=== PATIENT | female | born 1955 | race Caucasian/White ===

== ENCOUNTER 2018-02-27 08:05 | Inpatient (IN) | payer BC ==
[~2018-02-27 08:05] MED LIST: Buffered Lidocaine 0.9% SYRIN* 5 ML/SYR SYRINGE INTRADERM ONE; Vancomycin(*) 1,000 MG in NS 0.9% 250 ML* 250 ML IVPB SCH
--- OUTSIDE RECORDS SUMMARY | 2018-02-27 08:17 | XMS REPORT ---
:1955 External Reference #:[id number] Author Organization [facility] Address [address] [facility] [place] [address] Phone [phone] Care Team Providers Name Role Phone Davide Christianson III, MD Primary Care Physician Unavailable Payers Type Date Identification Numbers Payment Provider Subscriber Commercial Policy Number: [id number] [facility] Brigida Sunshinell PayID: [id number] [address] [address] [place] [address] Medigap Part B Effective: Policy Number: [facility] Brigida Fierro 2013 [id number] Sher Expires: 2015 PayID: [id number] [address] [address] [place] [address] Medigap Part B Effective: Policy Number: [facility] Brigida Fierro 2011 [id number] Sher Expires: 2013 PayID: [id number] [address] [place] [address] Medigap Part B Expires: 2011 Policy Number: [facility] Brigida Olivarez [id number] PayID: [id number] [address] [address] [place] [address] Problems Date Description Provider Status Onset: 02/24/2011 Benign essential hypertension Davide Christianson M.D. Active Onset: 02/24/2011 Allergic rhinitis Davide Christianson M.D. Active Onset: 02/24/2011 Low back pain Davide Christianson M.D. Active Onset: 02/24/2011 Osteochondropathy Davide hCristianson M.D. Active Onset: 01/05/2016 Essential hypertension Davide Christianson M.D. Active Onset: 01/05/2016 Disorder of bone Davide Christianson M.D. Active Onset: 04/20/2017 Scoliosis deformity of spine Jaciel Fairchild M.D. Active Onset: 04/20/2017 Degeneration of lumbar Jaciel Fairchild M.D. 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 Active Onset: 01/10/2018 Neck pain Chris Charles M.D. Active Onset: 01/10/2018 Congenital anomaly of brain Chris Charles M.D. Active Family History Date Family Member(s) Problem(s) Comments General Hypertension General Osteoporosis Father due to Sudden () - age 85. (+) HTN Mother Hypertension Mother Osteoporosis Social History Type Date Description Comments Occupation Retired Lead Manufacturing Technician /factory Cigarette Use Quit - Age 30 1-2 ppd max; began age 15 ETOH Use Rarely consumes alcohol "a little" Smoking Patient is a former smoker Recreational Drug Use Denies Drug Use Exercise Type/Frequency Exercises regularly walks daily Allergies, Adverse Reactions, Alerts Date Description Reaction Status Severity Comments 01/30/2007 PCN active Rash 05/10/2007 Tylenol active Causes Nausea 02/08/2018 Seasonal active Medications Medication Date Status Form Strength Qnty SIG Indications Ordering Provider Potassium 01/06/ Active Tablets ER 8Meq 90tab take 1 by Davide Sams Chloride ER 2016 s mouth daily Sunni Christianson Montelukast 01/06/ Active Tablets 10mg 90tab take 1 by Davide Sams Sodium 2015 s mouth at Meghan, bedtime as M.D. needed for allergies Triamterene/Hy 01/06/ Active Capsules 37.5-25mg 90cap take 1 by Davide Sams drochlorothiaz 2015 s mouth daily Meghan servando Riaz.Autumn Nasonex 01/04/ Active Suspension 50mcg/Act 51gm instill 2 Davide Sams 2015 sprays into Meghan, each M.D. nostril once a day Ashely 02/18/ Active Tablets 180mg 90tab 1 po qd prn Davide Sams 2008 s Sunni Christianson Calcium/Vitami / Active Tablets 600mg/400 1 PO bid Unknown n D 0000 mg Metamucil / Active Powder 28.3% 3 tsp at Unknown 0000 bedtime Vitamin D-3 / Active Tablets 400Unit two tablets Unknown 0000 daily Ibu-200 / Active Tablets 200mg 2 tab by Unknown 0000 mouth as needed Azelastine HCL 09/24/ Hx Solution 0.05% 6ml 2 drops to Davide Sams (Ophthalmic) 2016 - each eye Meghan, 01/09/ twice a day M.D. 2018 as needed Budesonide 12/31/ Hx Suspension 32mcg/Act 3unit 1 spray to Davide Sams 2014 - s each Meghan, 01/04/ nostril M.D. 2016 daily Zostavax 04/09/ Hx Solution Rec [id number] 1unit 1 dose s/c Davide Sams 2013 - 0.65ML s Meghan, 01/04/ M.D. 2015 Klor-Con 11/27/ Hx Tablets ER 8Meq 90tab take 1 by Davide Sams 2013 - s mouth daily Meghan, M.D. 2016 Azelastine HCL 09/28/ Hx Solution 0.05% 1bott 1 drop each Davide Sams 2013 - le eye bid Meghan, 09/28/ M.D. 2013 Azelastine HCL 09/28/ Hx Solution 0.05% 6ml 2 drops Davide Sams Opthalmic 2013 - twice a day Meghan, Solution 09/24/ as needed M.D. 2016 Vitamin D 05/11/ Hx Capsules 400Unit 60cap 1 po bid Davide Sams 2010 - s Meghan, 12/31/ M.D. 2013 Klor-Con 8 02/25/ Hx Tablets ER 8Meq 90tab Take One Davide Sams 2010 - Tablet By Meghan 11/27/ Mouth Every M.D. 2013 Day Dyazide 02/08/ Hx Capsules 37.5-25mg 90cap take 1 by Davide Sams 2010 - mouth daily Meghan, M.D. 2016 Dyazide 12/09/ Hx 70-50mg 45uni 1/2 tablet Davide Sams 2010 - ts po qd Meghan, 02/08/ M.D. 2010 Slow K 12/22/ Hx 8Meq 90uni 1 po qd Davide Sams 2009 - ts Meghan, 12/27/ M.D. 2011 Darvon-N 02/03/ Hx Tablets 100mg 1-2 tabs po Davide Sams 2008 - qid prn Meghan, 02/12/ M.D. 2009 Flonase 12/27/ Hx Suspension 50mcg/Act QS 2 Davide Sams 2007 - intranasal Meghan, 12/31/ puffs to M.D. 2014 each nostril daily 3 month supply please Celebrex 11/09/ Hx Capsules 200mg 90cap 1 po qd Davide Sams 2008 - s Meghan, 02/03/ M.D. 2009 Physical 08/28/ Hx 10Vis eval/Rx Davide Sams Therapy 2008 - its chronic low Meghan, 02/03/ back pain M.D. 2008 Darvon-N 07/07/ Hx Tablets 100mg 30tab 1 po Davide Sams 2007 - s Meghan, 02/03/ M.D. 2009 Veramyst 03/14/ Hx Suspension 27.5mcg/S 1unit 1 spray to Davide Sams 2006 - pray s jose Meghan, 12/27/ nostril M.D. 2007 daily Ashely 03/14/ Hx Tablets 180mg 30tab 1 po qd prbouchra Sams 2006 - paddy Christianson, 02/03/ M.D. 2008 Potassium 01/30/ Hx Tablets ER 90tab 1 PO qd Davide Sams Gluconate 2006 - paddy Christianson, 01/30/ M.D. 2006 Multivitamin 01/30/ Hx Tablets 1 PO qd Davide Sams With Iron 2006 - Meghan, M.D. 2010 Claritin / Hx Tablets 10mg 1 PO qd inez Peña, 0000 - MD Fuentes 2006 Dyazide / Hx Capsules 37.5-25 90cap 1 po qd Davide Sams 0000 - paddy Christianson, M.D. 2010 Slow K / Hx 60Meg 90uni 1 PO qd Davide Sams 0000 - ts (600 mgm) Meghan, 12/22/ M.D. 2009 Astelin / Hx Solution 137mcg/Sp 3unit 2 Sprays Davide Sams 0000 - ray s Each Nostil Meghan, 02/03/ bid M.D. 2008 With Vit D 00/ Hx Tablets 600mg qd Mariana 0000 - MD Fuentes 2006 Zyrtec Allergy / Hx Capsules 10mg 30cap 1 po qd Unknown 0000 - s 2017 Econazole / Hx Cream 1% 30g topical qd Unknown Nitrate 0000 - 2 weeks 2013 Singulair / Hx Tablets 10mg 90tab take 1 by Davide Sams 0000 - s mouth at Meghan, 12/07/ bedtime as M.D. 2016 needed for allergies Naproxen / Hx Tablets 500mg Conchis 0000 - Owen, 2017 Mometasone / Hx Suspension 50mcg/Act two sprays Unknown Furoate 0000 - everyday 2017 Medications Administered in Office Medication Date Status Form Strength Qnty SIG Indications Ordering Provider Influenza Administered Injection Unknown Virus Vaccine 014 Immunizations CPT Code Status Date Vaccine Lot # [id number] Given 03/26/2017 Influenza Virus Vaccine, Quadrivalent, Split, Preservative Free 64287 Given 12/08/2016 Tdap - Tetanus/Diptheria/Acellular Pertussis [id number] 26538 Given 03/25/2016 Influenza Virus Vaccine, Quadrivalent, Split, Preservative Free 85950 Given 04/17/2015 Zoster (Zostavax) 03231 Given 03/27/2015 Influenza Virus Vaccine, Quadrivalent, Split, Preservative Free 13986 Given 04/23/2014 Pneumonia Vaccine 78099 Given 04/07/2012 Fluzone High Dose 05952 Given 05/08/2008 Influenza Virus 3Yrs & Over 32771 Given 05/08/2008 Influenza Virus 3Yrs & Over 897-48 91158 Given 07/28/2006 Td (History By Patient) 33830 Given Unknown Influenza Virus Vaccine, Quadrivalent, Split, Preservative Free Vital Signs Date Vital Result Comment 02/24/2018 Height 66 inches 5'6" Weight 111.00 lb BP Systolic Sitting 102 mmHg BP Diastolic Sitting 70 mmHg Pain Level 6 BMI (Body Mass Index) 17.9 kg/m2 02/14/2018 Height 66 inches 5'6" Weight 111.00 lb Heart Rate 60 /min BP Systolic Sitting 100 mmHg BP Diastolic Sitting 60 mmHg O2 % BldC Oximetry 97 % BMI (Body Mass Index) 17.9 kg/m2 02/08/2018 Height 66 inches 5'6" Weight 111.00 lb Heart Rate 67 /min BP Systolic 108 mmHg BP Diastolic 64 mmHg Respiratory Rate 16 /min Pain Level 2 O2 % BldC Oximetry 98 % BMI (Body Mass Index) 17.9 kg/m2 01/20/2018 Height 66 inches 5'6" Weight 110.00 lb BP Systolic Sitting 110 mmHg BP Diastolic Sitting 70 mmHg Pain Level 3 BMI (Body Mass Index) 17.8 kg/m2 01/10/2018 Height 66 inches 5'6" Weight 110.00 lb Heart Rate 60 /min BP Systolic Sitting 96 mmHg BP Diastolic Sitting 64 mmHg Respiratory Rate 16 /min BMI (Body Mass Index) 17.8 kg/m2 12/05/2017 Height 66 inches 5'6" Weight 110.00 lb Heart Rate 62 /min BP Systolic Sitting 98 mmHg BP Diastolic Sitting 68 mmHg O2 % BldC Oximetry 99 % BMI (Body Mass Index) 17.8 kg/m2 11/21/2017 Height 66 inches 5'6" Weight 110.00 lb BP Systolic Sitting 120 mmHg BP Diastolic Sitting 80 mmHg Pain Level 5 BMI (Body Mass Index) 17.8 kg/m2 11/14/2017 Height 66 inches 5'6" Weight 110.00 lb BP Systolic Sitting 132 mmHg BP Diastolic Sitting 80 mmHg Pain Level 4 BMI (Body Mass Index) 17.8 kg/m2 11/11/2017 Height 66 inches 5'6" Weight 110.00 lb BP Systolic Sitting 122 mmHg BP Diastolic Sitting 80 mmHg Pain Level 6 BMI (Body Mass Index) 17.8 kg/m2 04/20/2017 Height 66 inches 5'6" Weight 110.00 lb Heart Rate 64 /min BP Systolic Sitting 110 mmHg BP Diastolic Sitting 78 mmHg Pain Level 2 BMI (Body Mass Index) 17.8 kg/m2 04/11/2017 Height 66 inches 5'6" Weight 110.38 lb Heart Rate 60 /min BP Systolic Sitting 118 mmHg BP Diastolic Sitting 72 mmHg Body Temperature 98.5 F O2 % BldC Oximetry 99 % BMI (Body Mass Index) 17.8 kg/m2 12/08/2016 Height 66 inches 5'6" Weight 109.25 lb Heart Rate 59 /min BP Systolic 120 mmHg BP Diastolic 70 mmHg Body Temperature 96.5 F O2 % BldC Oximetry 98 % BMI (Body Mass Index) 17.6 kg/m2 01/05/2016 Height 66 inches 5'6" Weight 110.00 lb Heart Rate 57 /min BP Systolic Sitting 98 mmHg BP Diastolic Sitting 68 mmHg Body Temperature 97.7 F O2 % BldC Oximetry 97 % BMI (Body Mass Index) 17.8 kg/m2 12/31/2014 Height 66 inches 5'6" Weight 110.00 lb Heart Rate 56 /min BP Systolic Sitting 110 mmHg BP Diastolic Sitting 60 mmHg O2 % BldC Oximetry 98 % BMI (Body Mass Index) 17.8 kg/m2 12/31/2013 Height 66 inches 5'6" Weight 109.75 lb Heart Rate 60 /min BP Systolic Sitting 98 mmHg BP Diastolic Sitting 54 mmHg Body Temperature 98.3 F BMI (Body Mass Index) 17.7 kg/m2 12/28/2012 Height 66 inches 5'6" Weight 111.00 lb Heart Rate 60 /min BP Systolic Sitting 100 mmHg BP Diastolic Sitting 56 mmHg BMI (Body Mass Index) 17.9 kg/m2 12/28/2011 Height 60.75 inches 5'0.75" Weight 117.00 lb Heart Rate 56 /min BP Systolic Sitting 120 mmHg BP Diastolic Sitting 80 mmHg Body Temperature 97.0 F BMI (Body Mass Index) 22.3 kg/m2 02/24/2011 Height 60.75 inches 5'0.75" Weight 121.00 lb Heart Rate 64 /min BP Systolic Sitting 112 mmHg BP Diastolic Sitting 60 mmHg BMI (Body Mass Index) 23.0 kg/m2 02/12/2010 Weight 123.00 lb Heart Rate 54 /min BP Systolic Sitting 140 mmHg BP Diastolic Sitting 82 mmHg 02/03/2009 Weight 127.00 lb Heart Rate 56 /min BP Systolic Sitting 110 mmHg BP Diastolic Sitting 76 mmHg 05/16/2008 Height 65.5 inches 5'5.50" Weight 130.00 lb BP Systolic Sitting 128 mmHg BP Diastolic Sitting 80 mmHg BMI (Body Mass Index) 21.3 kg/m2 01/31/2008 Height 65.5 inches 5'5.50" Weight 127.00 lb Heart Rate 56 /min BP Systolic Sitting 130 mmHg BP Diastolic Sitting 80 mmHg BMI (Body Mass Index) 20.8 kg/m2 08/28/2007 Height 65.5 inches 5'5.50" BP Systolic Sitting 120 mmHg BP Diastolic Sitting 70 mmHg 07/19/2007 Height 65.5 inches 5'5.50" Weight 132.00 lb Heart Rate 56 /min BP Systolic Sitting 146 mmHg BP Diastolic Sitting 80 mmHg BMI (Body Mass Index) 21.6 kg/m2 07/07/2007 Height 65.5 inches 5'5.50" BP Systolic Sitting 140 mmHg BP Diastolic Sitting 88 mmHg 05/10/2007 Height 65.5 inches 5'5.50" Weight 134.00 lb Heart Rate 60 /min BP Systolic Sitting 132 mmHg BP Diastolic Sitting 80 mmHg BMI (Body Mass Index) 22.0 kg/m2 03/14/2007 Height 65.5 inches 5'5.50" Weight 129.00 lb Heart Rate 56 /min BP Systolic Sitting 130 mmHg BP Diastolic Sitting 80 mmHg BMI (Body Mass Index) 21.1 kg/m2 01/30/2007 Height 65.5 inches 5'5.50" Weight 129.00 lb Heart Rate 60 /min BP Systolic Sitting 124 mmHg BP Diastolic Sitting 70 mmHg BMI (Body Mass Index) 21.1 kg/m2 Results Test Date Test Result H/L Range Note CBC Auto Diff 02/23/2018 White Blood Count 6.3 10^3/uL 3.5-10.8 Red Blood Count 4.44 10^6/uL 4.00-5.40 Hemoglobin 14.2 g/dL 12.0-16.0 Hematocrit 41 % 35-47 Mean Corpuscular Volume 93 fL 80-97 Mean Corpuscular Hemoglobin 32 pg High 27-31 Mean Corpuscular HGB Conc 35 g/dL 31-36 Red Cell Distribution Width 13 % 10.5-15 Platelet Count 356 10^3/uL 150-450 Mean Platelet Volume 7.7 um3 7.4-10.4 Abs Neutrophils 3.8 10^3/uL 1.5-7.7 Abs Lymphocytes 1.6 10^3/uL 1.0-4.8 Abs Monocytes 0.6 10^3/uL 0-0.8 Abs Eosinophils 0.3 10^3/uL 0-0.6 Abs Basophils 0.1 10^3/uL 0-0.2 Abs Nucleated RBC 0 10^3/uL Granulocyte % 60.2 % 38-83 Lymphocyte % 25.0 % 25-47 Monocyte % 9.7 % High 0-7 Eosinophil % 4.0 % 0-6 Basophil % 1.1 % 0-2 Nucleated Red Blood Cells % 0 Inr/Protime 02/23/2018 Inr 0.94 0.77-1.02 Laboratory test finding 02/23/2018 Partial Thrombo Time 33.1 seconds 26.0 -36.3 PTT Basic Metabolic Panel 02/23/2018 Sodium 137 mmol/L 135-145 Potassium 3.6 mmol/L 3.5-5.0 Chloride 98 mmol/L Low 101-111 Co2 Carbon Dioxide 31 mmol/L 22-32 Anion Gap 8 mmol/L 2-11 Glucose 90 mg/dL 70-100 Blood Urea Nitrogen 18 mg/dL 6-24 Creatinine 0.66 mg/dL 0.51-0.95 BUN/Creatinine Ratio 27.3 High 8-20 Calcium 10.3 mg/dL 8.6-10.3 Egfr Non- 90.7 >60 Egfr 109.8 >60 1 Type & Screen 02/23/2018 Patient Blood Type A Positive Antibody Screen NEGATIVE Urinalysis Profile 02/23/2018 Urine Color Straw Urine Appearance Clear Urine Specific Lamar 1.009 Low 1.010-1.030 Urine pH 5.0 5-9 Urine Urobilinogen Negative Negative Urine Ketones Negative Negative Urine Protein Negative Negative Urine Leukocytes Trace Negative Urine Blood Negative Negative Urine Nitrite Negative Negative Urine Bilirubin Negative Negative Urine Glucose Negative Negative Urine White Blood Cell Trace(0-5/hpf) Absent Urine Red Blood Cell Absent Absent Urine Bacteria Absent Absent Urine Squamous Epithelial Cell Present Absent Creatinine 01/25/2018 Creatinine 0.84 mg/dL 0.51-0.95 Egfr Non- 68.7 >60 Egfr 83.1 >60 2 Vitamin B12 And Folate Serum 01/20/2018 Vitamin B12 340 pg/mL 180-914 3 Folic Acid (Folate) 11.87 ng/mL >3.99 Laboratory test finding 01/20/2018 TSH (Thyroid Stim Horm) 1.45 mcIU/mL 0.34-5.60 Free T4 (Free Thyroxine) 0.95 ng/dL 0.61-1.12 Nuclear AB (Dee) By Ifa Igg <1:80 (Negative) 4 Erythrocyte Sed Rate 10 mm/Hr 0-30 C Reactive Protein < 1.00 mg/L <8.01 Rapid HIV <pending> Methylmalonic Acid Mma 0.34 nmol/mL <=0.40 5 HIV 1/2 AB Evaluation 01/20/2018 HIV 1 2 Antibody Nonreactive Nonreactive 6 Laboratory test 12/20/2017 Vitamin D Total 53.3 ng/mL High 20-50 finding 25(Oh) Basic Metabolic Panel 11/25/2017 Sodium 138 mmol/L Low 139-145 Potassium 4.1 mmol/L 3.5-5.0 Chloride 99 mmol/L Low 101-111 Co2 Carbon Dioxide 32 mmol/L 22-32 Anion Gap 7 mmol/L 2-11 Glucose 77 mg/dL 70-100 Blood Urea Nitrogen 28 mg/dL High 6-24 Creatinine 0.71 mg/dL 0.51-0.95 BUN/Creatinine Ratio 39.4 High 8-20 Calcium 10.8 mg/dL High 8.6-10.3 Egfr Non- 83.4 >60 Egfr 107.3 >60 7 Xray 11/11/2017 Spine Scoliosis Erect <pending> Spine Lumbosacral Bending Views Only 2 Or 3 Views <pending> Laboratory test 04/01/2017 Surgical Pathology SEE RESULT BELOW 8, 9 finding Basic Metabolic Panel 12/08/2016 Sodium 139 mmol/L 133-145 Potassium 3.8 mmol/L 3.5-5.0 Chloride 98 mmol/L Low 101-111 Co2 Carbon Dioxide 31 mmol/L 22-32 Anion Gap 10 mmol/L 2-11 Glucose 81 mg/dL 70-100 Blood Urea Nitrogen 30 mg/dL High 6-24 Creatinine 0.71 mg/dL 0.51-0.95 BUN/Creatinine Ratio 42.3 High 8-20 Calcium 10.1 mg/dL 8.6-10.3 Egfr Non- 83.7 >60 Egfr 107.6 >60 10 Lipid Profile (Trig/Chol/HDL) 12/22/2015 Triglycerides 78 mg/dL 11 Cholesterol 191 mg/dL 12 HDL Cholesterol 57.2 mg/dL 13 LDL Cholesterol 118 mg/dL 14 Comp Metabolic Panel 12/22/2015 Sodium 135 mmol/L 133-145 Potassium 3.7 mmol/L 3.5-5.0 Chloride 99 mmol/L Low 101-111 Co2 Carbon Dioxide 31 mmol/L 22-32 Anion Gap 5 mmol/L 2-11 Glucose 84 mg/dL 70-100 Blood Urea Nitrogen 26 mg/dL High 6-24 Creatinine 0.75 mg/dL 0.51-0.95 BUN/Creatinine Ratio 34.7 High 8-20 Calcium 9.8 mg/dL 8.6-10.3 Total Protein 7.0 g/dL 6.4-8.9 Albumin 4.5 g/dL 3.2-5.2 Globulin 2.5 g/dL 2-4 Albumin/Globulin Ratio 1.8 1-3 Total Bilirubin 0.50 mg/dL 0.2-1.0 Alkaline Phosphatase 53 U/L 34-104 Alt 19 U/L 7-52 Ast 21 U/L 13-39 Egfr Non- 78.8 >60 Egfr 101.4 >60 15 Lipid Profile (Trig/Chol/HDL) 12/18/2014 Triglycerides 53 mg/dL 16 Cholesterol 177 mg/dL 17 HDL Cholesterol 60.3 mg/dL 18 LDL Cholesterol 106 mg/dL 19 Comp Metabolic Panel 12/18/2014 Sodium 136 mmol/L 133-145 Potassium 3.8 mmol/L 3.5-5.0 Chloride 99 mmol/L Low 101-111 Co2 Carbon Dioxide 31 mmol/L 22-32 Anion Gap 6 mmol/L 2-11 Glucose 82 mg/dL 70-100 Blood Urea Nitrogen 24 mg/dL 6-24 Creatinine 0.71 mg/dL 0.51-0.95 BUN/Creatinine Ratio 33.8 High 8-20 Calcium 9.6 mg/dL 8.6-10.3 Total Protein 7.0 g/dL 6.4-8.9 Albumin 4.6 g/dL 3.2-5.2 Globulin 2.4 g/dL 2-4 Albumin/Globulin Ratio 1.9 1-3 Total Bilirubin 0.50 mg/dL 0.2-1.0 Alkaline Phosphatase 52 U/L 34-104 Alt 18 U/L 7-52 Ast 20 U/L 13-39 Egfr Non- 84.3 >60 Egfr 108.4 >60 20 Comp Metabolic Panel 01/03/2014 Sodium 137 mmol/L 133-145 Potassium 4.0 mmol/L 3.7-5.6 Chloride 101 mmol/L 101-111 Co2 Carbon Dioxide 32 mmol/L 22-32 Anion Gap 4 mmol/L 2-11 Glucose 81 mg/dL 70-100 Blood Urea Nitrogen 19 mg/dL 6-24 Creatinine 0.71 mg/dL 0.51-0.95 BUN/Creatinine Ratio 26.8 High 8-20 Calcium 9.8 mg/dL 8.6-10.3 Total Protein 6.9 g/dL 6.4-8.9 Albumin 4.4 g/dL 3.2-5.2 Globulin 2.5 g/dL 2-4 Albumin/Globulin Ratio 1.8 1-3 Total Bilirubin 0.60 mg/dL 0.2-1.0 Alkaline Phosphatase 58 U/L 34-104 Alt 19 U/L 7-52 Ast 23 U/L 13-39 Egfr Non- 84.6 >60 Egfr 108.7 >60 21 Hemoglobin/Hematacrit 02/16/2013 Hemoglobin 11.6 g/dL Low 12.0-16.0 Hematocrit 35 % 35-47 Basic Metabolic Panel 02/09/2013 Sodium 138 mmol/L 133-145 Potassium 3.6 mmol/L 3.5-5.0 Chloride 101 mmol/L 101-111 Co2 Carbon Dioxide 31.0 mmol/L 22-32 Anion Gap 6.0 mmol/L 2-11 Glucose 78 mg/dL 70-100 Blood Urea Nitrogen 21 mg/dL 6-24 Creatinine 0.70 mg/dL 0.50-1.40 BUN/Creatinine Ratio 30.0 High 8-20 Calcium 9.9 mg/dL 8.1-9.9 Egfr Non- 86.2 >60 Egfr 110.9 >60 22 CBC Auto Diff 02/09/2013 White Blood Count 5.7 10^3/uL 4.8-10.8 Red Blood Count 4.23 10^6/uL 4.0-5.4 Hemoglobin 13.7 g/dL 12.0-16.0 Hematocrit 41 % 35-47 Mean Corpuscular Volume 96 fL 80-97 Mean Corpuscular Hemoglobin 32 pg High 27-31 Mean Corpuscular HGB Conc 34 g/dL 31-36 Red Cell Distribution Width 13 % 10.5-15 Platelet Count 326 10^3/uL 150-450 Mean Platelet Volume 8 um3 7.4-10.4 Abs Neutrophils 3.3 10^3/uL 1.5-7.7 Abs Lymphocytes 1.6 10^3/uL 1.0-4.8 Abs Monocytes 0.5 10^3/uL 0-0.8 Abs Eosinophils 0.3 10^3/uL 0-0.6 Abs Basophils 0.1 10^3/uL 0-0.2 Abs Nucleated RBC 0 10^3/uL Granulocyte % 57.4 % 38-83 Lymphocyte % 27.6 % 25-47 Monocyte % 9.4 % High 1-9 Eosinophil % 4.5 % 0-6 Basophil % 1.1 % 0-2 Nucleated Red Blood Cells % 0 Type & Screen 02/09/2013 Patient Blood Type A Positive Antibody Screen NEGATIVE Basic Metabolic Panel 12/28/2012 Sodium 140 mmol/L 133-145 Potassium 4.7 mmol/L 3.5-5.0 Chloride 102 mmol/L 101-111 Co2 Carbon Dioxide 31.0 mmol/L 22-32 Anion Gap 7.0 mmol/L 2-11 Glucose 78 mg/dL 70-100 Blood Urea Nitrogen 24 mg/dL 6-24 Creatinine 0.70 mg/dL 0.50-1.40 BUN/Creatinine Ratio 34.3 High 8-20 Calcium 9.9 mg/dL 8.1-9.9 Egfr Non- 86.2 >60 Egfr 110.9 >60 23 Comp Metabolic Panel 12/06/2011 Sodium 135 mmol/L 135-145 Potassium 3.7 mmol/L 3.5-5.0 Chloride 99 mmol/L Low 101-111 Co2 (Carbon Dioxide) 30.0 mmol/L 22-32 Anion Gap 6.0 mmol/L 2-11 24 Glucose 80 mg/dL 70-100 BUN 17 mg/dL 6-24 Creatinine 0.6 mg/dL 0.50-1.40 One Over Creatinine 1.66 BUN/Creatinine Ratio 28.3 High 8-20 Calcium 9.5 mg/dL 8.1-9.9 Total Protein 6.7 GM/DL 6.2-8.1 Albumin 4.5 GM/DL 3.6-5.4 Globulin 2.2 GM/DL 2-4 Albumin/Globulin Ratio 2.0 1-3 Bilirubin Total 0.9 mg/dL 0.4-1.5 25 Alkaline Phosphatase 59 U/L 30-110 Alt (SGPT) 22 U/L 14-54 Ast (Sgot) 28 U/L 12-42 eGFR Non- 103.4 > 60 eGFR 133.0 > 60 26 Lipid Profile (Trig/Chol/HDL) 12/06/2011 Triglyceride 49 mg/dL 40-200 Cholesterol 176 mg/dL Less Than 200 27 High Density Lipoprotein 55 mg/dL 40-60 28 Cholesterol/HDL Ratio 3.20 AVERAGE 1-4.44 Low Density Lipoprotein 111 mg/dL High Less Than 100 29 Vitamin D, 25 Hydroxy 04/28/2011 25-Hydroxy Vitamin D2 <4.0 ng/mL () 25-Hydroxy Vitamin D3 30 ng/mL () 25-Hydroxy Vitamin D Total 30 ng/mL () 30 CMP Panel 12/09/2010 Sodium 137 mmol/L 135-145 Potassium 3.9 mmol/L 3.5-5.0 Chloride 99 mmol/L Low 101-111 Co2 (Carbon Dioxide) 31.0 mmol/L 22-32 Anion Gap 7.0 mmol/L 2-11 31 Glucose 83 mg/dL 70-100 BUN 24 mg/dL 6-24 Creatinine 0.80 mg/dL 0.50-1.40 One Over Creatinine 1.20 BUN/Creatinine Ratio 30.0 High 8-20 Calcium 9.8 mg/dL 8.1-9.9 Total Protein 6.9 GM/DL 6.2-8.1 Albumin 4.4 GM/DL 3.6-5.4 Globulin 2.5 GM/DL 2-4 Albumin/Globulin Ratio 1.8 1-3 Bilirubin Total 1.0 mg/dL 0.4-1.5 32 Alkaline Phosphatase 72 U/L 30-110 Alt (SGPT) 22 U/L 14-54 Ast (Sgot) 27 U/L 12-42 eGFR Non- 74.5 > 60 eGFR 95.8 > [address] Christianson's Lab Panel 12/09/2010 TSH 1.75 MIU/ML 0.34-5.60 Lipid Panel 12/09/2010 Triglyceride 80 mg/dL 40-200 Cholesterol 176 mg/dL Less Than 200 34 High Density Lipoprotein 65 mg/dL High 40-60 35 Cholesterol/HDL Ratio 2.71 AVERAGE 1-4.44 Low Density Lipoprotein 95 mg/dL Less Than 100 36 CBC W/Manual Diff 12/09/2010 White Blood Count 5.3 CUMM 4.8-10.8 Red Cell Count 3.99 CUMM Low 4.2-5.4 Hemoglobin 12.9 g/dL 12.0-16.0 Hematocrit 38 % 35-47 Mean Corpuscular Volume 96 um3 79-97 Mean Corpuscular Hemoglob 32 pg High 27-31 Mean Corpuscular HGB Cone 34 g/dL 32-36 Redcell Distribution WDTH 13 % 10.5-15 Platelet Count 320 CUMM 150-450 Mean Platelet Volume 8.6 um3 7.4-10.4 Polysegmented Neutrophil 60 % 38-83 Lymphocyte 33 % 25-47 Monocyte 3 % 0-13 Eosinophil 4 % 0-6 Absolute Neutrophil Count 3.1 Anisocytosis SLIGHT CBC With Electronic Diff 03/31/2009 White Blood Count 5.4 CUMM 4.8-10.8 Red Cell Count 4.16 CUMM Low 4.2-5.4 Hemoglobin 13.4 g/dL 12.0-16.0 Hematocrit 40 % 35-47 Mean Corpuscular Volume 95 um3 79-97 Mean Corpuscular Hemoglob 32 pg High 27-31 Mean Corpuscular HGB Cone 34 g/dL 32-36 Redcell Distribution WDTH 14 % 10.5-15 Platelet Count 305 CUMM 150-450 Mean Platelet Volume 8.4 um3 7.4-10.4 Gran % 55.2 % 38-83 Lymph % 27.1 % 25-47 Mononuclear % 10.3 % High 1-9 Eosinophil % 6.6 % High 0-6 Basophil % 0.8 % 0-2 Abs Lymphs 1.5 1.0-4.8 Abs Mononuclear 0.6 0-0.8 Absolute Neutrophil Count 3.0 1.5-7.7 Abs Eosinophils 0.4 0-0.6 Abs Basophils 0 0-0.2 Comp Metabolic Panel 03/31/2009 Sodium 139 mmol/L 135-145 Potassium 3.9 mmol/L 3.5-5.0 Chloride 100 mmol/L Low 101-111 Co2 (Carbon Dioxide) 29.0 mmol/L 22-32 Anion Gap 10.0 mmol/L 2-11 37 Glucose 77 mg/dL 70-100 38 BUN 25 mg/dL High 6-24 Creatinine 0.80 mg/dL 0.50-1.40 One Over Creatinine 1.20 BUN/Creatinine Ratio 31.3 High 8-20 Calcium 10.0 mg/dL High 8.1-9.9 39 Total Protein 6.8 GM/DL 6.2-8.1 Albumin 4.4 GM/DL 3.6-5.4 Globulin 2.4 GM/DL 2-4 Albumin/Globulin Ratio 1.8 1-3 Bilirubin Total 0.7 mg/dL 0.4-1.5 40 Alkaline Phosphatase 60 U/L 30-110 Alt (SGPT) 23 U/L 14-54 Ast (Sgot) 24 U/L 12-42 eGFR Non- 79.7 > 60 eGFR 96.5 > 60 41 Lipid Profile (Trig/Chol/HDL) 03/31/2009 Triglyceride 50 mg/dL 40-200 Cholesterol 155 mg/dL Less Than 200 42 High Density Lipoprotein 59 mg/dL 40-60 43 Low Density Lipoprotein 86 mg/dL Less Than 100 44 Cholesterol/HDL Ratio 2.63 AVERAGE 1-4.44 Laboratory test finding 03/31/2009 TSH 3.66 MIU/ML 0.34-5.60 Basic Metabolic Panel 01/31/2008 Sodium 139 mmol/L 135-145 45 Potassium 5.2 mmol/L High 3.5-5.0 45 Chloride 102 mmol/L 101-111 45 Co2 (Carbon Dioxide) 29.0 mmol/L 22-32 45 Anion Gap 8.0 mmol/L 2-11 45, 46 Glucose 85 mg/dL 70-105 45 BUN 24 mg/dL 6-24 45 Creatinine 0.8 mg/dL 0.5-1.4 45 One Over Creatinine 1.25 45 BUN/Creatinine Ratio 30.0 High 8-20 45 Calcium 10.0 mg/dL High 8.1-9.9 45, 47 Laboratory test finding 07/09/2007 CPK (Creatine Kinase) 146 U/L 0-170 45 Rheumatoid Factor < 20.0 IU/mL Less Than 20 45 Erythrocyte Sed Rate 4 MM/HR 0-30 45 Dee 07/09/2007 Antinuclear AB NEGATIVE Negative 45 Surgical Pathology 03/30/2007 Surgical Pathology <SEE 48 NOTE> 1 Because ethnic data is not always readily available, this report includes an eGFR for both -Americans and non- Americans. The National Kidney Disease Education Program (NKDEP) does not endorse the use of the MDRD equation for patients that are not between the ages of 18 and 70, are , have extremes of body size, muscle mass, or nutritional status, or are non- or non-. According to the National Kidney Foundation, irrespective of diagnosis, the stage of the disease is based on the level of kidney function: Stage Description GFR(mL/min/1.73 m(2)) 1 Kidney damage with normal or decreased GFR 90 2 Kidney damage with mild decrease in GFR 60-89 3 Moderate decrease in GFR 30-59 4 Severe decrease in GFR 15-29 5 Kidney failure <15 (or dialysis) 2 Because ethnic data is not always readily available, this report includes an eGFR for both -Americans and non- Americans. The National Kidney Disease Education Program (NKDEP) does not endorse the use of the MDRD equation for patients that are not between the ages of 18 and 70, are , have extremes of body size, muscle mass, or nutritional status, or are non- or non-. According to the National Kidney Foundation, irrespective of diagnosis, the stage of the disease is based on the level of kidney function: Stage Description GFR(mL/min/1.73 m(2)) 1 Kidney damage with normal or decreased GFR 90 2 Kidney damage with mild decrease in GFR 60-89 3 Moderate decrease in GFR 30-59 4 Severe decrease in GFR 15-29 5 Kidney failure <15 (or dialysis) 3 Normal Range 180 to 914 Indeterminate Range 145 to 180 Deficient Range <145 4 <1:80 (Negative) REFERENCE VALUE <1:80 (Negative) Test Performed by: [facility] - [address] [address] 5 ADDITIONAL INFORMATION This test was developed and its performance characteristics determined by [facility] in a manner consistent with CLIA requirements. This test has not been cleared or approved by the U.S. Food and Drug Administration. Test Performed by: [address] [address] 6 It is recognized that currently available assays for the detection of antibodies to HIV-1 and/or HIV-2 may not detect all infected individuals. HIV antibodies may be undetectable in some stages of the infection and in some clinical conditions. The performance of this assay has not been established for populations of infants or children. Assayed by Chemiluminescence Microparticle Immunoassay on the Siemens Advia Centaur CP. Values obtained with different methods or kits cannot be used interchangeably.The diagnostic specificity of the ADVIA Centaur 1/O/2 Enhanced assay in the low risk population was 99.90% (6052/6058) with a 95% confidence interval of 99.78 to 99.96%. 7 Because ethnic data is not always readily available, this report includes an eGFR for both -Americans and non- Americans. The National Kidney Disease Education Program (NKDEP) does not endorse the use of the MDRD equation for patients that are not between the ages of 18 and 70, are , have extremes of body size, muscle mass, or nutritional status, or are non- or non-. According to the National Kidney Foundation, irrespective of diagnosis, the stage of the disease is based on the level of kidney function: Stage Description GFR(mL/min/1.73 m(2)) 1 Kidney damage with normal or decreased GFR 90 2 Kidney damage with mild decrease in GFR 60-89 3 Moderate decrease in GFR 30-59 4 Severe decrease in GFR 15-29 5 Kidney failure <15 (or dialysis) 8 [id number] SEE RESULT BELOW Name: BRIGIDA OLIVAREZ Sri : [address]: Rory Bowens MD Acct: [id number] Unit: [id number] AGE: 61 Location: [facility] Re04/01/17 SEX: F Status: DEP REF SPEC: [id number] LETICIA: 04/01/[address] [facility] [address]: Rory Bowens MD REQ: [id number] RECD: 04/01/17 STATUS: SUHA SHARP DR: Davide Christianson III, MD _ ORDERED: LEVEL 4 COMMENTS: [id number] FINAL DIAGNOSIS Colon, 20 cm, biopsy: -- Hyperplastic polyp. CLINICAL HISTORY Screening for malignancy in asymptomatic patient. POST-OPERATIVE DIAGNOSIS Colonoscopy to terminal ileum with excellent prep, 3-4 mm polyp at 20 cm removed with cold forceps. Conclusions/Plan: Await pathology. GROSS DESCRIPTION The specimen is received in formalin labeled, Biopsy Polyp at 20 cm, and consists of a 0.4 x 0.3 x 0.2 cm speckled rangel-red irregular to polypoid soft tissue fragment, which is entirely submitted in one cassette. Signed (signature on file) Masoud Ramsey MD 1306 END OF REPORT * ML=Testing performed at Main Lab DEPARTMENT OF PATHOLOGY, [address] [place] [address] Masoud Ramsey M.D. Director [facility] # [id number] 10 Because ethnic data is not always readily available, this report includes an eGFR for both -Americans and non- Americans. The National Kidney Disease Education Program (NKDEP) does not endorse the use of the MDRD equation for patients that are not between the ages of 18 and 70, are , have extremes of body size, muscle mass, or nutritional status, or are non- or non-. According to the National Kidney Foundation, irrespective of diagnosis, the stage of the disease is based on the level of kidney function: Stage Description GFR(mL/min/1.73 m(2)) 1 Kidney damage with normal or decreased GFR 90 2 Kidney damage with mild decrease in GFR 60-89 3 Moderate decrease in GFR 30-59 4 Severe decrease in GFR 15-29 5 Kidney failure <15 (or dialysis) 11 Desirable <150 Borderline high 150-199 High 200-499 Very High >500 12 Desirable <200 Borderline high 200-239 High >239 13 Low <40 Desirable: 40-60 High: >60 14 Desirable: <100 mg/dL Near Optimal: 100-129 mg/dL Borderline High: 130-159 mg/dL High: 160-189 mg/dL Very High: >189 mg/dL 15 Because ethnic data is not always readily available, this report includes an eGFR for both -Americans and non- Americans. The National Kidney Disease Education Program (NKDEP) does not endorse the use of the MDRD equation for patients that are not between the ages of 18 and 70, are , have extremes of body size, muscle mass, or nutritional status, or are non- or non-. According to the National Kidney Foundation, irrespective of diagnosis, the stage of the disease is based on the level of kidney function: Stage Description GFR(mL/min/1.73 m(2)) 1 Kidney damage with normal or decreased GFR 90 2 Kidney damage with mild decrease in GFR 60-89 3 Moderate decrease in GFR 30-59 4 Severe decrease in GFR 15-29 5 Kidney failure <15 (or dialysis) 16 Desirable <150 Borderline high 150-199 High 200-499 Very High >500 17 Desirable <200 Borderline high 200-239 High >239 18 Low <40 Desirable: 40-60 High: >60 19 Desirable: <100 mg/dL Near Optimal: 100-129 mg/dL Borderline High: 130-159 mg/dL High: 160-189 mg/dL Very High: >189 mg/dL 20 Because ethnic data is not always readily available, this report includes an eGFR for both -Americans and non- Americans. The National Kidney Disease Education Program (NKDEP) does not endorse the use of the MDRD equation for patients that are not between the ages of 18 and 70, are , have extremes of body size, muscle mass, or nutritional status, or are non- or non-. According to the National Kidney Foundation, irrespective of diagnosis, the stage of the disease is based on the level of kidney function: Stage Description GFR(mL/min/1.73 m(2)) 1 Kidney damage with normal or decreased GFR 90 2 Kidney damage with mild decrease in GFR 60-89 3 Moderate decrease in GFR 30-59 4 Severe decrease in GFR 15-29 5 Kidney failure <15 (or dialysis) 21 Because ethnic data is not always readily available, this report includes an eGFR for both -Americans and non- Americans. The National Kidney Disease Education Program (NKDEP) does not endorse the use of the MDRD equation for patients that are not between the ages of 18 and 70, are , have extremes of body size, muscle mass, or nutritional status, or are non- or non-. According to the National Kidney Foundation, irrespective of diagnosis, the stage of the disease is based on the level of kidney function: Stage Description GFR(mL/min/1.73 m(2)) 1 Kidney damage with normal or decreased GFR 90 2 Kidney damage with mild decrease in GFR 60-89 3 Moderate decrease in GFR 30-59 4 Severe decrease in GFR 15-29 5 Kidney failure <15 (or dialysis) 22 Because ethnic data is not always readily available, this report includes an eGFR for both -Americans and non- Americans. The National Kidney Disease Education Program (NKDEP) does not endorse the use of the MDRD equation for patients that are not between the ages of 18 and 70, are , have extremes of body size, muscle mass, or nutritional status, or are non- or non-. According to the National Kidney Foundation, irrespective of diagnosis, the stage of the disease is based on the level of kidney function: Stage Description GFR(mL/min/1.73 m(2)) 1 Kidney damage with normal or decreased GFR 90 2 Kidney damage with mild decrease in GFR 60-89 3 Moderate decrease in GFR 30-59 4 Severe decrease in GFR 15-29 5 Kidney failure <15 (or dialysis) 23 Because ethnic data is not always readily available, this report includes an eGFR for both -Americans and non- Americans. The National Kidney Disease Education Program (NKDEP) does not endorse the use of the MDRD equation for patients that are not between the ages of 18 and 70, are , have extremes of body size, muscle mass, or nutritional status, or are non- or non-. According to the National Kidney Foundation, irrespective of diagnosis, the stage of the disease is based on the level of kidney function: Stage Description GFR(mL/min/1.73 m(2)) 1 Kidney damage with normal or decreased GFR 90 2 Kidney damage with mild decrease in GFR 60-89 3 Moderate decrease in GFR 30-59 4 Severe decrease in GFR 15-29 5 Kidney failure <15 (or dialysis) 24 Anion gap measurement may be of limited value in the presence of any alkalosis, especially in a combined acid base disorder. . 25 A metabolite of Naproxen, O-desmethylnaproxen, has been shown to interfere with the [place] method for measuring total bilirubin. Samples from patients who have taken Naproxen have shown spurious elevation in total bilirubin levels. 26 Because ethnic data is not always readily available, this report includes an eGFR for both -Americans and non- Americans. The National Kidney Disease Education Program (NKDEP) does not endorse the use of the MDRD equation for patients that are not between the ages of 18 and 70, are , have extremes of body size, muscle mass, or nutritional status, or are non- or non-. According to the National Kidney Foundation, irrespective of diagnosis, the stage of the disease is based on the level of kidney function: Stage Description GFR(mL/min/1.73 m(2)) 1 Kidney damage with normal or decreased GFR 90 2 Kidney damage with mild decrease in GFR 60-89 3 Moderate decrease in GFR 30-59 4 Severe decrease in GFR 15-29 5 Kidney failure <15 (or dialysis) 27 CHOLESTEROL INTERPRETATION: Desirable: Less than 200 MG/DL Borderline-High Risk: 200-239 MG/DL High-Risk: 240 MG/DL and over 28 HDL INTERPRETATION: Undesirable: High Risk: Less than 40 MG/DL Desirable: Low Risk: Greater than 60 MG/DL 29 LDL INTERPRETATION: Low Risk Optimal Level: LDL Less than 100 MG/DL Near or Above Optimal: LDL 100-129 MG/DL Borderline High Risk: LDL 130-159 MG/DL High Risk: LDL 160-189 MG/DL Very High Risk: LDL Greater than 189 MG/DL 30 -- REFERENCE VALUE -- 25-HYDROXY D TOTAL (D2+D3) Optimum levels in the normal population are 25-80 Test Performed by: [facility] Dpt of Lab Med and Pathology [address] [place], [place] [id number] Registered Diet Technician: Adarsh Trinh III, M.D. 31 Anion gap measurement may be of limited value in the presence of any alkalosis, especially in a combined acid base disorder. . 32 A metabolite of Naproxen, O-desmethylnaproxen, has been shown to interfere with the Jendrassik-[place] method for measuring total bilirubin. Samples from patients who have taken Naproxen have shown spurious elevation in total bilirubin levels. 33 Because ethnic data is not always readily available, this report includes an eGFR for both -Americans and non- Americans. The National Kidney Disease Education Program (NKDEP) does not endorse the use of the MDRD equation for patients that are not between the ages of 18 and 70, are , have extremes of body size, muscle mass, or nutritional status, or are non- or non-. According to the National Kidney Foundation, irrespective of diagnosis, the stage of the disease is based on the level of kidney function: Stage Description GFR(mL/min/1.73 m(2)) 1 Kidney damage with normal or decreased GFR 90 2 Kidney damage with mild decrease in GFR 60-89 3 Moderate decrease in GFR 30-59 4 Severe decrease in GFR 15-29 5 Kidney failure <15 (or dialysis) 34 CHOLESTEROL INTERPRETATION: Desirable: Less than 200 MG/DL Borderline-High Risk: 200-239 MG/DL High-Risk: 240 MG/DL and over 35 HDL INTERPRETATION: Undesirable: High Risk: Less than 40 MG/DL Desirable: Low Risk: Greater than 60 MG/DL 36 LDL INTERPRETATION: Low Risk Optimal Level: LDL Less than 100 MG/DL Near or Above Optimal: LDL 100-129 MG/DL Borderline High Risk: LDL 130-159 MG/DL High Risk: LDL 160-189 MG/DL Very High Risk: LDL Greater than 189 MG/DL 37 Anion gap measurement may be of limited value in the presence of any alkalosis, especially in a combined acid base disorder. . 38 Note change in reference range as of 03/07/08. The change was based on recommendations from the [place] [employer]. 39 Please note change in reference range effective 07 . 40 A metabolite of Naproxen, O-desmethylnaproxen, has been shown to interfere with the [place]rass[place] method for measuring total bilirubin. Samples from patients who have taken Naproxen have shown spurious elevation in total bilirubin levels. 41 Because ethnic data is not always readily available, this report includes an eGFR for both -Americans and non- Americans. The National Kidney Disease Education Program (NKDEP) does not endorse the use of the MDRD equation for patients that are not between the ages of 18 and 70, are , have extremes of body size, muscle mass, or nutritional status, or are non- or non-. According to the National Kidney Foundation, irrespective of diagnosis, the stage of the disease is based on the level of kidney function: Stage Description GFR(mL/min/1.73 m(2)) 1 Kidney damage with normal or decreased GFR 90 2 Kidney damage with mild decrease in GFR 60-89 3 Moderate decrease in GFR 30-59 4 Severe decrease in GFR 15-29 5 Kidney failure <15 (or dialysis) 42 CHOLESTEROL INTERPRETATION: Desirable: Less than 200 MG/DL Borderline-High Risk: 200-239 MG/DL High-Risk: 240 MG/DL and over 43 HDL INTERPRETATION: Undesirable: High Risk: Less than 40 MG/DL Desirable: Low Risk: Greater than 60 MG/DL 44 LDL INTERPRETATION: Low Risk Optimal Level: LDL Less than 100 MG/DL Near or Above Optimal: LDL 100-129 MG/DL Borderline High Risk: LDL 130-159 MG/DL High Risk: LDL 160-189 MG/DL Very High Risk: LDL Greater than 189 MG/DL 45 PATIENT MAY HAVE RESULTS PER DOCTOR'S AUTHORIZATION. Questions regarding this report should be directed to your doctor. 46 Anion gap measurement may be of limited value in the presence of any alkalosis, especially in a combined acid base disorder. . 47 Please note change in reference range effective 07 . 48 ---- RUN DATE: 04/03/07 [facility] LIVE PAGE 1 RUN TIME: 1202 Specimen Inquiry RUN USER: INTERFACE [id number] BRIGIDA OLIVAREZ 51/F <REG REF 03/30> ([id number]) 2EGutierrez Wilson MD -- Specimen: [id number] SOUT Spec Date: 03/30/[address]: Gutierrez waite MD Spec Type: SURGICAL P Received: 03/31/0727 Copies to: Davide Christianson III, MD SPECIMEN 1) COLON POLYP BIOPSY HEPATIC FLEXURE 2) COLON POLYP AT 30 CM. HISTORY CLINICAL INFORMATION: Patient for screening colonoscopy with positive [facility] chandrika history of colon polyps. Negative colonoscopy 1998 GROSS DESCRIPTION 1) The specimen is received in formalin labelled Brigida Olivarez, Colon Polyp Biopsy Hepatic Flexure, and consists of one, 0.3 cm. rangel bit. Total, one block. 2) The specimen is received in formalin labelled Brigida Olivarez, Colon Polyp 30 cm., and consists of one, 0.4 x 0.3 x 0.3 cm. rangel polyp. Total, one block. DIAGNOSIS 1) Colon, polyp at hepatic flexure, biopsy - Hyperplastic polyp. 2) Colon, polyp at 30 cm., biopsy - Hyperplastic polyp. Signed Electronically by: TRU ARANDA MD 04/03/07 1202 -- -- DEPARTMENT OF PATHOLOGY, [address] [place] [address] [facility] Permit #[id number] Masoud Ramsey M.D. Director of Laboratories Tru Aranda II, M.D . Pathologist -- Procedures Date CPT Code Description Status 02/14/2018 06232 EKG Tracing & Interpretation Completed 12/08/2017 Bone Mineral Density Test Completed 11/30/2017 Mammogram Completed 04/01/2017 Colonoscopy Completed 04/01/2017 21092 Moderate Sedation Services; Same Phys Each Additional Completed 15 Mins 04/01/2017 81745 Moderate Sedation Services; Same Phys Intl 15 Mins; PT Completed >=5 Years 04/01/2017 61129 Colonoscopy Flexible W/Biopsy Completed 02/22/2017 Colonoscopy Completed 12/01/2016 Mammogram Completed 01/08/2016 Bone Mineral Density Test Completed 12/22/2015 Mammogram Completed 12/24/2014 Mammogram Completed 01/03/2014 Bone Mineral Density Test Completed 12/05/2013 Mammogram Completed 02/09/2013 76290 EKG, Interpretation Only Completed 01/10/2013 Mammogram Completed 01/10/2012 Mammogram Completed 04/26/2011 Bone Mineral Density Test Completed 03/26/2011 Mammogram Completed 02/12/2010 18114 Screening Vision Test Completed 03/21/2009 Mammogram Completed 03/30/2007 Colonoscopy Completed Encounters Type Date Location Provider CPT E/M Dx Office Visit 02/14/2018 [facility] Internal Medicine Davide Christianson, 24241 Z01.810 3:20p - Dayanara Moeller M47.26 I10 M85.89 Office Visit 02/08/2018 3:30p [place] 73741 M47.26 [facility]rolog[facility] Serv Of Joi Moeller M48.061 R20.2 M54.5 M54.2 Office Visit 01/20/2018 9:00a [facility] [place] [address] M41.9 Of Joi Patel MD M47.26 M51.36 M48.061 Office Visit 01/10/2018 11:00a [facility] Chris Charles 81338 R20.2 Services Of Joi Moeller M54.5 M54.2 R94.09 Office Visit 12/05/2017 1:20p [facility] Davide Christianson, 80939 Z00.00 - Dayanara Moeller I10 M85.9 M54.5 J30.9 Office Visit 11/21/2017 3:45p [facility] [place] 31381 M41.9 Of Joi Patel MD M47.26 M48.061 M54.2 Office Visit 11/14/2017 9:00a [facility] [place] 42944 M51.36 Of Joi Patel MD M41.9 M51.26 M47.26 M48.061 Office Visit 11/11/2017 10:50a [facility] Services Jaciel Fairchild 58552 M51.36 Of Joi RomeroAmanda M41.9 Office Visit 04/20/2017 11:20a [facility] Jaciel Fairchild M.D. 80421 M41.9 Of Customer Service Operator M51.36 M51.26 Office Visit 04/11/2017 2:20p [facility] Davide Christianson, 41701 M54.5 - [place] Moeller Office Visit 12/08/2016 9:20a [facility] Davide Christianson, 34489 Z00.00 - [place] Mello.Autumn I10 J30.9 M85.9 M54.5 Z12.11 Z23 Office Visit 01/05/2016 1:00p [facility] Davide Christianson, 16650 Z00.00 - Patricia Moeller I10 J30.9 M85.9 M54.5 Office Visit 12/31/2014 1:00p [facility] Davide Christianson, 62631 V70.0 - Patricia Moeller 401.1 477.9 733.90 724.2 V10.83 Office Visit 12/31/2013 1:00p [facility] Davide Christianson, 53425 V70.0 - Patricia Mello.Autumn 401.1 477.9 733.90 724.2 Office Visit 12/28/2012 1:00p [facility] Davide Christianson, 78198 V70.0 - Patricia Mello.DAmanda 401.1 477.9 709.9 Office Visit 12/28/2011 11:00a [facility] Davide Christianson, 71008 V70.0 - Patricia M.DAmanda 401.1 733.90 719.46 Office Visit 02/24/2011 9:40a DO Not Use Customer Service Operator AT Davide Christianson, 81635 401.1 Alma Rosa Moeller 477.9 724.2 733.90 Office Visit 02/12/2010 9:40a DO Not Use Customer Service Operator AT Davide Christianson, 35505 401.1 Alma Rosa Moeller 477.9 724.2 733.90 Office Visit 02/03/2009 1:30p [facility] AT Davide Christianson, 41129 477.9 [facility] M.D. 724.2 111.2 401.1 Office Visit 12/16/2008 1:30a [facility], Gerber Tan, 53765 Hospitalists M.D. Office Visit 05/16/2008 2:00p [facility] AT [facility], 90564 724.2 [facility] M.D. Office Visit 01/31/2008 10:00a [facility] AT [facility], 42627 477.9 [facility] M.D. 401.1 Office Visit 08/28/2007 2:30p [facility] AT [facility], 69075 724.2 [facility] M.D. Office Visit 07/19/2007 11:00a [facility] AT [facility], 66632 724.2 [facility] M.D. Office Visit 07/07/2007 9:45a [facility] AT [facility], 39700 719.41 [facility] M.D. Office Visit 05/10/2007 10:45a [facility] AT [facility], 99641 719.41 [facility] M.D. Office Visit 03/14/2007 2:15p [facility] AT [facility], 26357 477.9 [facility] M.D. Office Visit 01/30/2007 2:15p [facility] AT [facility], 45424 401.1 [facility] M.D. Plan of Care Future Appointment(s):03/02/2018 10:30 am - Ricardo Patel MD at [facility]12/06/2018 9:20 am - Davide Christianson M.D. at [facility] Internal Medicine [facility]
--- OUTSIDE RECORDS SUMMARY | 2018-02-27 08:17 | XMS REPORT ---
:1955 External Reference #:[id number] Author Organization [employer] Address [address] [place] [address] Phone [phone] Care Team Providers Name Role Phone Davide Christianson III, MD Primary Care Physician Unavailable Payers Type Date Identification Numbers Payment Provider Subscriber Commercial Policy Number: [id number] [facility] Brigida Olivarez PayID: [id number] [address] [address] [place] [address] Medigap Part B Effective: Policy Number: [place] Brigida Fierro 2013 [id number] Sher Expires: 2015 PayID: [id number] [address] [address] [place] [address] Medigap Part B Effective: Policy Number: [facility] Brigida Fierro 2011 [id number] Sher Expires: 2013 PayID: [id number] [address] [place] [address] Medigap Part B Expires: 2011 Policy Number: [facility] Brigida Olivarez [id number] PayID: [id number] [address] [address] [place] [address] Problems Date Description Provider Status Onset: 02/24/2011 Benign essential hypertension Davide Christianson M.D. Active Onset: 02/24/2011 Allergic rhinitis Davide Christianson M.D. Active Onset: 02/24/2011 Low back pain Davide Christianson M.D. Active Onset: 02/24/2011 Osteochondropathy Davide Christianson M.D. Active Onset: 01/05/2016 Essential hypertension Davide [...] History Type Date Description Comments Occupation Retired Student Admissions Clerk /factory Cigarette Use Quit - Age 30 [...] 2016 daily Zostavax 04/09/ Hx Solution Rec [id number]/ 1unit 1 dose s/c Davide Sams 2013 [...] CPT Code Status Date Vaccine Lot # [id number] Given 03/26/2017 Influenza Virus Vaccine, Quadrivalent, Split, Preservative Free 29018 Given 12/08/2016 Tdap - Tetanus/Diptheria/Acellular Pertussis [id number] 22028 Given 03/25/2016 Influenza Virus Vaccine, Quadrivalent, Split, Preservative Free 83639 Given 04/17/2015 Zoster (Zostavax) 45007 Given 03/27/2015 Influenza Virus Vaccine, Quadrivalent, Split, Preservative Free 93435 Given 04/23/2014 Pneumonia Vaccine 07348 Given 04/07/2012 Fluzone High Dose 52146 Given 05/08/2008 Influenza Virus 3Yrs & Over 59079 Given 05/08/2008 Influenza Virus 3Yrs & Over 897-48 42472 Given 07/28/2006 Td (History By Patient) 93202 Given Unknown Influenza Virus Vaccine, Quadrivalent, Split, Preservative Free Vital Signs Date Vital Result Comment 02/14/2018 Height 66 inches 5'6" Weight 111.00 [...] Test Date Test Result H/L Range Note Creatinine 01/25/2018 Creatinine 0.84 mg/dL 0.51-0.95 Egfr Non- 68.7 >60 Egfr 83.1 >60 1 Vitamin B12 And Folate Serum 01/20/2018 Vitamin B12 340 pg/mL 180-914 2 Folic Acid (Folate) 11.87 ng/mL >3.99 Laboratory test finding 01/20/2018 TSH (Thyroid Stim Horm) 1.45 mcIU/mL 0.34-5.60 Free T4 (Free Thyroxine) 0.95 ng/dL 0.61-1.12 Nuclear AB (Dee) By Ifa Igg <1:80 (Negative) 3 Erythrocyte Sed Rate 10 mm/Hr 0-30 C Reactive Protein < 1.00 mg/L <8.01 Rapid HIV <pending> Methylmalonic Acid Mma 0.34 nmol/mL <=0.40 4 HIV 1/2 AB Evaluation 01/20/2018 HIV 1 2 Antibody Nonreactive Nonreactive 5 Laboratory test 12/20/2017 Vitamin D Total 53.3 [...] Egfr Non- 83.4 >60 Egfr 107.3 >60 6 Xray 11/11/2017 Spine Scoliosis Erect <pending> Spine Lumbosacral Bending Views Only 2 Or 3 Views <pending> Laboratory test 04/01/2017 Surgical Pathology SEE RESULT BELOW 7, 8 finding Basic Metabolic Panel 12/08/2016 Sodium 139 mmol/L 133-145 Potassium 3.8 mmol/L 3.5-5.0 Chloride 98 mmol/L Low 101-111 Co2 Carbon Dioxide 31 mmol/L 22-32 Anion Gap 10 mmol/L 2-11 Glucose 81 mg/dL 70-100 Blood Urea Nitrogen 30 mg/dL High 6-24 Creatinine 0.71 mg/dL 0.51-0.95 BUN/Creatinine Ratio 42.3 High 8-20 Calcium 10.1 mg/dL 8.6-10.3 Egfr Non- 83.7 >60 Egfr 107.6 >60 9 Lipid Profile (Trig/Chol/HDL) 12/22/2015 Triglycerides 78 mg/dL 10 Cholesterol 191 mg/dL 11 HDL Cholesterol 57.2 mg/dL 12 LDL Cholesterol 118 mg/dL 13 Comp Metabolic Panel 12/22/2015 Sodium 135 mmol/L [...] Egfr Non- 78.8 >60 Egfr 101.4 >60 14 Lipid Profile (Trig/Chol/HDL) 12/18/2014 Triglycerides 53 mg/dL 15 Cholesterol 177 mg/dL 16 HDL Cholesterol 60.3 mg/dL 17 LDL Cholesterol 106 mg/dL 18 Comp Metabolic Panel 12/18/2014 Sodium 136 mmol/L [...] Egfr Non- 84.3 >60 Egfr 108.4 >60 19 Comp Metabolic Panel 01/03/2014 Sodium 137 mmol/L [...] Egfr Non- 84.6 >60 Egfr 108.7 >60 20 Hemoglobin/Hematacrit 02/16/2013 Hemoglobin 11.6 g/dL Low 12.0-16.0 [...] Egfr Non- 86.2 >60 Egfr 110.9 >60 21 CBC Auto Diff 02/09/2013 White Blood Count [...] Non- 86.2 >60 Egfr 110.9 >60 22 Comp Metabolic Panel 12/06/2011 Sodium 135 mmol/L 135-145 Potassium 3.7 mmol/L 3.5-5.0 Chloride 99 mmol/L Low 101-111 Co2 (Carbon Dioxide) 30.0 mmol/L 22-32 Anion Gap 6.0 mmol/L 2-11 23 Glucose 80 mg/dL 70-100 BUN 17 mg/dL 6-24 Creatinine 0.6 mg/dL 0.50-1.40 One Over Creatinine 1.66 BUN/Creatinine Ratio 28.3 High 8-20 Calcium 9.5 mg/dL 8.1-9.9 Total Protein 6.7 GM/DL 6.2-8.1 Albumin 4.5 GM/DL 3.6-5.4 Globulin 2.2 GM/DL 2-4 Albumin/Globulin Ratio 2.0 1-3 Bilirubin Total 0.9 mg/dL 0.4-1.5 24 Alkaline Phosphatase 59 U/L 30-110 Alt (SGPT) 22 U/L 14-54 Ast (Sgot) 28 U/L 12-42 eGFR Non- 103.4 > 60 eGFR 133.0 > 60 25 Lipid Profile (Trig/Chol/HDL) 12/06/2011 Triglyceride 49 mg/dL 40-200 Cholesterol 176 mg/dL Less Than 200 26 High Density Lipoprotein 55 mg/dL 40-60 27 Cholesterol/HDL Ratio 3.20 AVERAGE 1-4.44 Low Density Lipoprotein 111 mg/dL High Less Than 100 28 Vitamin D, 25 Hydroxy 04/28/2011 25-Hydroxy Vitamin D2 <4.0 ng/mL () 25-Hydroxy Vitamin D3 30 ng/mL () 25-Hydroxy Vitamin D Total 30 ng/mL () 29 CMP Panel 12/09/2010 Sodium 137 mmol/L 135-145 Potassium 3.9 mmol/L 3.5-5.0 Chloride 99 mmol/L Low 101-111 Co2 (Carbon Dioxide) 31.0 mmol/L 22-32 Anion Gap 7.0 mmol/L 2-11 30 Glucose 83 mg/dL 70-100 BUN 24 mg/dL 6-24 Creatinine 0.80 mg/dL 0.50-1.40 One Over Creatinine 1.20 BUN/Creatinine Ratio 30.0 High 8-20 Calcium 9.8 mg/dL 8.1-9.9 Total Protein 6.9 GM/DL 6.2-8.1 Albumin 4.4 GM/DL 3.6-5.4 Globulin 2.5 GM/DL 2-4 Albumin/Globulin Ratio 1.8 1-3 Bilirubin Total 1.0 mg/dL 0.4-1.5 31 Alkaline Phosphatase 72 U/L 30-110 Alt (SGPT) 22 U/L 14-54 Ast (Sgot) 27 U/L 12-42 eGFR Non- 74.5 > 60 eGFR 95.8 > [address] Christianson's Lab Panel 12/09/2010 TSH 1.75 MIU/ML 0.34-5.60 Lipid Panel 12/09/2010 Triglyceride 80 mg/dL 40-200 Cholesterol 176 mg/dL Less Than 200 33 High Density Lipoprotein 65 mg/dL High 40-60 34 Cholesterol/HDL Ratio 2.71 AVERAGE 1-4.44 Low Density Lipoprotein 95 mg/dL Less Than 100 35 CBC W/Manual Diff 12/09/2010 White Blood Count [...] mmol/L 22-32 Anion Gap 10.0 mmol/L 2-11 36 Glucose 77 mg/dL 70-100 37 BUN 25 mg/dL High 6-24 Creatinine 0.80 mg/dL 0.50-1.40 One Over Creatinine 1.20 BUN/Creatinine Ratio 31.3 High 8-20 Calcium 10.0 mg/dL High 8.1-9.9 38 Total Protein 6.8 GM/DL 6.2-8.1 Albumin 4.4 GM/DL 3.6-5.4 Globulin 2.4 GM/DL 2-4 Albumin/Globulin Ratio 1.8 1-3 Bilirubin Total 0.7 mg/dL 0.4-1.5 39 Alkaline Phosphatase 60 U/L 30-110 Alt (SGPT) 23 U/L 14-54 Ast (Sgot) 24 U/L 12-42 eGFR Non- 79.7 > 60 eGFR 96.5 > 60 40 Lipid Profile (Trig/Chol/HDL) 03/31/2009 Triglyceride 50 mg/dL 40-200 Cholesterol 155 mg/dL Less Than 200 41 High Density Lipoprotein 59 mg/dL 40-60 42 Low Density Lipoprotein 86 mg/dL Less Than 100 43 Cholesterol/HDL Ratio 2.63 AVERAGE 1-4.44 Laboratory test finding 03/31/2009 TSH 3.66 MIU/ML 0.34-5.60 Basic Metabolic Panel 01/31/2008 Sodium 139 mmol/L 135-145 44 Potassium 5.2 mmol/L High 3.5-5.0 44 Chloride 102 mmol/L 101-111 44 Co2 (Carbon Dioxide) 29.0 mmol/L 22-32 44 Anion Gap 8.0 mmol/L 2-11 44, 45 Glucose 85 mg/dL 70-105 44 BUN 24 mg/dL 6-24 44 Creatinine 0.8 mg/dL 0.5-1.4 44 One Over Creatinine 1.25 44 BUN/Creatinine Ratio 30.0 High 8-20 44 Calcium 10.0 mg/dL High 8.1-9.9 44, 46 Laboratory test finding 07/09/2007 CPK (Creatine Kinase) 146 U/L 0-170 44 Rheumatoid Factor < 20.0 IU/mL Less Than 20 44 Erythrocyte Sed Rate 4 MM/HR 0-30 44 Dee 07/09/2007 Antinuclear AB NEGATIVE Negative 44 Surgical Pathology 03/30/2007 Surgical Pathology <SEE 47 NOTE> 1 Because ethnic data is not [...] 5 Kidney failure <15 (or dialysis) 2 Normal Range 180 to 914 Indeterminate Range 145 to 180 Deficient Range <145 3 <1:80 (Negative) REFERENCE VALUE <1:80 (Negative) Test Performed by: [facility] - [address] [address] 4 ADDITIONAL INFORMATION This test was developed and its performance characteristics determined by [facility] in a manner consistent with CLIA requirements. This test has not been cleared or approved by the U.S. Food and Drug Administration. Test Performed by: [facility] - [address] [address] 5 It is recognized that currently available assays [...] 95% confidence interval of 99.78 to 99.96%. 6 Because ethnic data is not always readily [...] 15-29 5 Kidney failure <15 (or dialysis) 7 [id number] SEE RESULT BELOW Name: BRIGIDA OLIVAREZ : [address]: Rory Bowens MD Acct: [id number] Unit: [id number] AGE: 61 Location: [facility] Re04/01/17 SEX: F Status: DEP REF SPEC: [id number] LETICIA: 04/01/[address]: Rory Bowens MD REQ: [id number] RECD: 04/01/17 STATUS: SUHA SHARP DR: Davide Christianson III, MD _ ORDERED: LEVEL 4 COMMENTS: [id number] FINAL DIAGNOSIS Colon, 20 cm, biopsy: -- [...] performed at Main Lab DEPARTMENT OF PATHOLOGY, [address] [place] [address] Masoud Ramsey M.D. Director [facility] # [id number] 9 Because ethnic data is not always readily [...] 15-29 5 Kidney failure <15 (or dialysis) 10 Desirable <150 Borderline high 150-199 High 200-499 Very High >500 11 Desirable <200 Borderline high 200-239 High >239 12 Low <40 Desirable: 40-60 High: >60 13 Desirable: <100 mg/dL Near Optimal: 100-129 mg/dL Borderline High: 130-159 mg/dL High: 160-189 mg/dL Very High: >189 mg/dL 14 Because ethnic data is not always readily [...] 15-29 5 Kidney failure <15 (or dialysis) 15 Desirable <150 Borderline high 150-199 High 200-499 Very High >500 16 Desirable <200 Borderline high 200-239 High >239 17 Low <40 Desirable: 40-60 High: >60 18 Desirable: <100 mg/dL Near Optimal: 100-129 mg/dL Borderline High: 130-159 mg/dL High: 160-189 mg/dL Very High: >189 mg/dL 19 Because ethnic data is not always readily [...] 15-29 5 Kidney failure <15 (or dialysis) 20 Because ethnic data is not always [...] 5 Kidney failure <15 (or dialysis) 23 Anion gap measurement may be of limited value in the presence of any alkalosis, especially in a combined acid base disorder. . 24 A metabolite of Naproxen, O-desmethylnaproxen, has been shown to interfere with the Jendrassik-Laura method for measuring total bilirubin. Samples from patients who have taken Naproxen have shown spurious elevation in total bilirubin levels. 25 Because ethnic data is not always readily [...] 15-29 5 Kidney failure <15 (or dialysis) 26 CHOLESTEROL INTERPRETATION: Desirable: Less than 200 MG/DL Borderline-High Risk: 200-239 MG/DL High-Risk: 240 MG/DL and over 27 HDL INTERPRETATION: Undesirable: High Risk: Less than 40 MG/DL Desirable: Low Risk: Greater than 60 MG/DL 28 LDL INTERPRETATION: Low Risk Optimal Level: LDL Less than 100 MG/DL Near or Above Optimal: LDL 100-129 MG/DL Borderline High Risk: LDL 130-159 MG/DL High Risk: LDL 160-189 MG/DL Very High Risk: LDL Greater than 189 MG/DL 29 -- REFERENCE VALUE -- 25-HYDROXY D TOTAL (D2+D3) Optimum levels in the normal population are 25-80 Test Performed by: [facility] Dpt of Lab Med and Pathology [address] [place] [address] Lead Pastor: Adarsh Trinh III, M.D. 30 Anion gap measurement may be of limited value in the presence of any alkalosis, especially in a combined acid base disorder. . 31 A metabolite of Naproxen, O-desmethylnaproxen, has been shown to interfere with the Jendrassik-Laura method for measuring total bilirubin. Samples from patients who have taken Naproxen have shown spurious elevation in total bilirubin levels. 32 Because ethnic data is not always readily [...] 15-29 5 Kidney failure <15 (or dialysis) 33 CHOLESTEROL INTERPRETATION: Desirable: Less than 200 MG/DL Borderline-High Risk: 200-239 MG/DL High-Risk: 240 MG/DL and over 34 HDL INTERPRETATION: Undesirable: High Risk: Less than 40 MG/DL Desirable: Low Risk: Greater than 60 MG/DL 35 LDL INTERPRETATION: Low Risk Optimal Level: LDL Less than 100 MG/DL Near or Above Optimal: LDL 100-129 MG/DL Borderline High Risk: LDL 130-159 MG/DL High Risk: LDL 160-189 MG/DL Very High Risk: LDL Greater than 189 MG/DL 36 Anion gap measurement may be of limited value in the presence of any alkalosis, especially in a combined acid base disorder. . 37 Note change in reference range as of 03/07/08. The change was based on recommendations from the [place] [employer]. 38 Please note change in reference range effective 07 . 39 A metabolite of Naproxen, O-desmethylnaproxen, has been shown to interfere with the [place] method for measuring total bilirubin. Samples from patients who have taken Naproxen have shown spurious elevation in total bilirubin levels. 40 Because ethnic data is not always readily [...] 15-29 5 Kidney failure <15 (or dialysis) 41 CHOLESTEROL INTERPRETATION: Desirable: Less than 200 MG/DL Borderline-High Risk: 200-239 MG/DL High-Risk: 240 MG/DL and over 42 HDL INTERPRETATION: Undesirable: High Risk: Less than 40 MG/DL Desirable: Low Risk: Greater than 60 MG/DL 43 LDL INTERPRETATION: Low Risk Optimal Level: LDL Less than 100 MG/DL Near or Above Optimal: LDL 100-129 MG/DL Borderline High Risk: LDL 130-159 MG/DL High Risk: LDL 160-189 MG/DL Very High Risk: LDL Greater than 189 MG/DL 44 PATIENT MAY HAVE RESULTS PER DOCTOR'S AUTHORIZATION. Questions regarding this report should be directed to your doctor. 45 Anion gap measurement may be of limited value in the presence of any alkalosis, especially in a combined acid base disorder. . 46 Please note change in reference range effective 07 . 47 ---- RUN DATE: 04/03/07 [facility] NMI LIVE PAGE 1 RUN TIME: 1202 Specimen Inquiry RUN USER: INTERFACE [id number] BRIGIDA OLIVAREZ 51/F <REG REF 03/30> ([id number]) Gutierrez Harrison MD -- Specimen: [id number] Spec Date: 03/30/[address]: Gutierrez waite MD Spec Type: SURGICAL P Received: 03/31/07 Copies to: Davide Christianson III, MD SPECIMEN 1) COLON POLYP BIOPSY HEPATIC FLEXURE 2) COLON POLYP AT 30 CM. HISTORY CLINICAL INFORMATION: Patient for screening colonoscopy with positive cody chandrika history of colon polyps. Negative colonoscopy 1998 GROSS DESCRIPTION 1) The specimen is received in formalin labelled Brigida Sunshinell, Colon Polyp Biopsy Hepatic Flexure, and consists of one, 0.3 cm. rangel bit. Total, one block. 2) The specimen is received in formalin labelled Brigida Sunshinell, Colon Polyp 30 cm., and consists of one, 0.4 x 0.3 x 0.3 cm. rangel polyp. Total, one block. DIAGNOSIS 1) Colon, polyp at hepatic flexure, biopsy - Hyperplastic polyp. 2) Colon, polyp at 30 cm., biopsy - Hyperplastic polyp. Signed Electronically by: TRU ARANDA MD 04/03/07 1202 -- -- DEPARTMENT OF PATHOLOGY, [address] [place] [address] [facility] Permit #[id number] Masoud Ramsey M.D. Director of Laboratories Nick Painter II Pathologist -- Procedures Date CPT Code Description Status 12/08/2017 Bone Mineral Density Test Completed 11/30/2017 Mammogram Completed 04/01/2017 Colonoscopy Completed 04/01/2017 02920 Moderate Sedation Services; Same Phys Each Additional Completed 15 Mins 04/01/2017 08880 Moderate Sedation Services; Same Phys Intl 15 Mins; PT Completed >=5 Years 04/01/2017 02584 Colonoscopy Flexible W/Biopsy Completed 02/22/2017 Colonoscopy Completed 12/01/2016 Mammogram Completed 01/08/2016 Bone Mineral Density Test Completed 12/22/2015 Mammogram Completed 12/24/2014 Mammogram Completed 01/03/2014 Bone Mineral Density Test Completed 12/05/2013 Mammogram Completed 02/09/2013 36594 EKG, Interpretation Only Completed 01/10/2013 Mammogram Completed 01/10/2012 Mammogram Completed 04/26/2011 Bone Mineral Density Test Completed 03/26/2011 Mammogram Completed 02/12/2010 62390 Screening Vision Test Completed 03/21/2009 Mammogram Completed 03/30/2007 Colonoscopy Completed Encounters Type Date Location Provider CPT E/M Dx Office Visit 02/08/2018 [place] Charles, 12837 M47.26 3:30p [facility] Sunni Tamez M48.061 R20.2 M54.5 M54.2 Office Visit 01/20/2018 9:00a [facility] [place] 6[address]19 M41.9 Of Joi Patel MD M47.26 M51.36 M48.061 Office Visit 01/10/2018 11:00a [facility], 33470 R20.2 Services Of Joi Moeller M54.5 M54.2 R94.09 Office Visit 12/05/2017 1:20p [facility] Internal Medicine Davide Christianson, 62570 Z00.00 - [place] Moeller I10 M85.9 M54.5 J30.9 Office Visit 11/21/2017 3:45p [facility] [place] 86464 M41.9 Of [facility] MD Jorge M47.26 M48.061 M54.2 Office Visit 11/14/2017 9:00a [facility] [place] [address]456 M51.36 Of [facility] MD Jorge M41.9 M51.26 M47.26 M48.061 Office Visit 11/11/2017 10:50a [facility]surgery Services Jaciel Fairchild 72944 M51.36 Of [facility] MCarol M41.9 Office Visit 04/20/2017 11:20a Neurosurgery Services Jaciel Fairchild M.D. 94824 M41.9 Of [facility] M51.36 M51.26 Office Visit 04/11/2017 2:20p [facility] Internal Medicine Davide Christianson, 34608 M54.5 - Arrow[place] Moeller Office Visit 12/08/2016 9:20a [facility] Internal Medicine Davide Christianson, 61699 Z00.00 - [place] Moeller I10 J30.9 M85.9 M54.5 Z12.11 Z23 Office Visit 01/05/2016 1:00p [facility] Internal Medicine Davide Christianson, 26382 Z00.00 - Patricia Moeller I10 J30.9 M85.9 M54.5 Office Visit 12/31/2014 1:00p [facility] Internal Medicine Davide Christianson 98721 V70.0 - Patricia Moeller 401.1 477.9 733.90 724.2 V10.83 Office Visit 12/31/2013 1:00p [facility] Internal Medicine Davide Christianson 80980 V70.0 - Patricia Moeller 401.1 477.9 733.90 724.2 Office Visit 12/28/2012 1:00p [facility] Medicine Davide Christianson 97309 V70.0 - Patricia Moeller 401.1 477.9 709.9 Office Visit 12/28/2011 11:00a [facility] Internal Medicine Davide Christianson, 38986 V70.0 [facility] 401.1 733.90 719.46 Office Visit 02/24/2011 9:40a DO Not Use On Line Csr AT [facility], 02489 401.1 [facility] 477.9 724.2 733.90 Office Visit 02/12/2010 9:40a DO Not Use On Line [facility]sr AT [facility], 00274 401.1 [facility] 477.9 724.2 733.90 Office Visit 02/03/2009 1:30p [facility] AT [facility], 27317 477.9 [facility].DAmanda 724.2 111.2 401.1 Office Visit 12/16/2008 1:30a [facility], [place] Tan [address] Hospitalists MCarol Office Visit 05/16/2008 2:00p [facility] AT [facility], 96820 724.2 [facility] M.D. Office Visit 01/31/2008 10:00a [facility], 70036 477.9 [facility].DAmanda 401.1 Office Visit 08/28/2007 2:30p [facility], 50436 724.2 [facility].D. Office Visit 07/19/2007 11:00a [facility], 86811 724.2 [facility] M.D. Office Visit 07/07/2007 9:45a [facility], 72663 719.41 [facility] M.D. Office Visit 05/10/2007 10:45a [facility], 13262 719.41 [facility] M.D. Office Visit 03/14/2007 2:15p [facility], 15604 477.9 [facility].D. Office Visit 01/30/2007 2:15p [facility], 75898 401.1 [facility] M.D. Plan of Care Future Appointment(s):02/24/2018 11:00 am - Ricardo Patel MD at [facility]03/02/2018 10:30 am - Ricardo Patel MD at [facility]12/06/2018 9:20 am - Davide Christianson M.D. at [facility] Internal Medicine - [id number]/31/2018 - Davide Christianson M.D.Z01.810 Encounter for preprocedural cardiovascular examinationNew Orders:[id number] Spinal stenosis, lumbar region without neurogenic puresY32 Essential (primary) mtpnzdvzyqjqX32.89 Oth disrd of bone density and structure, multiple sites
--- OUTSIDE RECORDS SUMMARY | 2018-02-27 08:18 | XMS REPORT ---
:1955 External Reference #:[id number] Author Organization [employer] Address [address] [facility] [place] [address] Phone [phone] Care Team Providers Name Role Phone Davide Christianson III, MD Primary Care Physician Unavailable Payers Type Date Identification Numbers Payment Provider Subscriber Commercial Policy Number: [id number] [facility] Brigida Sunshinell PayID: [id number] [address] [address] [place] [address] Medigap Part B Effective: Policy Number: [facility] Brigida Fierro 2013 [id number] Sher Expires: 2015 PayID: [id number] [address] [address] [place] [address] Medigap Part B Effective: Policy Number: [facility] Brigida Fierro 2011 [id number] Sher Expires: 2013 PayID: [id number] [address] [place] [address] Medigap Part B Expires: 2011 Policy Number: [facility] Brigida Olivarez [id number] PayID: [id number] [address] [address] [place] [address] Problems Date Description Provider Status Onset: 02/24/2011 [...] History Type Date Description Comments Occupation Retired Ordnance Technician /factory Cigarette Use Quit - Age [...] 2016 daily Zostavax 04/09/ Hx Solution Rec 09771Byy/ 1unit 1 dose s/c Davide Sams 2013 [...] Hx Tablets 500mg Conchis 0000 - Owen, 11/11/ 2017 Mometasone / Hx Suspension 50mcg/Act two sprays Unknown Furoate 0000 - everyday 2017 Medications Administered in Office Medication Date Status Form Strength Qnty SIG Indications Ordering Provider Influenza Administered Injection Unknown Virus Vaccine 014 Immunizations CPT Code Status Date Vaccine Lot # [id number] Given 03/26/2017 Influenza Virus Vaccine, Quadrivalent, Split, Preservative Free 32123 Given 12/08/2016 Tdap - Tetanus/Diptheria/Acellular Pertussis [id number] 74048 Given 03/25/2016 Influenza Virus Vaccine, Quadrivalent, Split, Preservative Free 89708 Given 04/17/2015 Zoster (Zostavax) 41948 Given 03/27/2015 Influenza Virus Vaccine, Quadrivalent, Split, Preservative Free 92076 Given 04/23/2014 Pneumonia Vaccine 29779 Given 04/07/2012 Fluzone High Dose 57774 Given 05/08/2008 Influenza Virus 3Yrs & Over 46204 Given 05/08/2008 Influenza Virus 3Yrs & Over 897-48 17363 Given 07/28/2006 Td (History By Patient) 78770 Given Unknown Influenza Virus Vaccine, Quadrivalent, Split, Preservative Free Vital Signs Date Vital Result Comment 02/08/2018 Height 66 inches 5'6" Weight 111.00 [...] Non- 83.7 >60 Egfr 107.6 >60 9 Comp Metabolic Panel 12/22/2015 Sodium 135 mmol/L [...] Egfr Non- 78.8 >60 Egfr 101.4 >60 10 Lipid Profile (Trig/Chol/HDL) 12/22/2015 Triglycerides 78 mg/dL 11 Cholesterol 191 mg/dL 12 HDL Cholesterol 57.2 mg/dL 13 LDL Cholesterol 118 mg/dL 14 Comp Metabolic Panel 12/18/2014 Sodium 136 mmol/L [...] Egfr Non- 84.3 >60 Egfr 108.4 >60 15 Lipid Profile (Trig/Chol/HDL) 12/18/2014 Triglycerides 53 mg/dL 16 Cholesterol 177 mg/dL 17 HDL Cholesterol 60.3 mg/dL 18 LDL Cholesterol 106 mg/dL 19 Comp Metabolic Panel 01/03/2014 Sodium 137 [...] Vitamin D Total 30 ng/mL () 29 DR Christianson's Lab Panel 12/09/2010 TSH 1.75 MIU/ML 0.34-5.60 CMP Panel 12/09/2010 Sodium 137 mmol/L 135-145 [...] > 60 eGFR 95.8 > 60 32 Lipid Panel 12/09/2010 Triglyceride 80 mg/dL 40-200 [...] 0-6 Absolute Neutrophil Count 3.1 Anisocytosis SLIGHT Laboratory test finding 03/31/2009 TSH 3.66 MIU/ML 0.34-5.60 Lipid Profile (Trig/Chol/HDL) 03/31/2009 Triglyceride 50 mg/dL 40-200 Cholesterol 155 mg/dL Less Than 200 36 High Density Lipoprotein 59 mg/dL 40-60 37 Low Density Lipoprotein 86 mg/dL Less Than 100 38 Cholesterol/HDL Ratio 2.63 AVERAGE 1-4.44 Comp Metabolic Panel 03/31/2009 Sodium 139 mmol/L 135-145 Potassium 3.9 mmol/L 3.5-5.0 Chloride 100 mmol/L Low 101-111 Co2 (Carbon Dioxide) 29.0 mmol/L 22-32 Anion Gap 10.0 mmol/L 2-11 39 Glucose 77 mg/dL 70-100 40 BUN 25 mg/dL High 6-24 Creatinine 0.80 mg/dL 0.50-1.40 One Over Creatinine 1.20 BUN/Creatinine Ratio 31.3 High 8-20 Calcium 10.0 mg/dL High 8.1-9.9 41 Total Protein 6.8 GM/DL 6.2-8.1 Albumin 4.4 GM/DL 3.6-5.4 Globulin 2.4 GM/DL 2-4 Albumin/Globulin Ratio 1.8 1-3 Bilirubin Total 0.7 mg/dL 0.4-1.5 42 Alkaline Phosphatase 60 U/L 30-110 Alt (SGPT) 23 U/L 14-54 Ast (Sgot) 24 U/L 12-42 eGFR Non- 79.7 > 60 eGFR 96.5 > 60 43 CBC With Electronic Diff 03/31/2009 White Blood [...] Eosinophils 0.4 0-0.6 Abs Basophils 0 0-0.2 Basic Metabolic Panel 01/31/2008 Sodium 139 mmol/L [...] Calcium 10.0 mg/dL High 8.1-9.9 44, 46 Dee 07/09/2007 Antinuclear AB NEGATIVE Negative 44 Laboratory test finding 07/09/2007 CPK (Creatine Kinase) 146 U/L 0-170 44 Rheumatoid Factor < 20.0 IU/mL Less Than 20 44 Erythrocyte Sed Rate 4 MM/HR 0-30 44 Surgical Pathology 03/30/2007 Surgical Pathology <SEE NOTE > 47 1 Because ethnic data is not always [...] REFERENCE VALUE <1:80 (Negative) Test Performed by: [facility] [address] [place] [address] 4 ADDITIONAL INFORMATION This test was developed and its performance characteristics determined by [facility] in a manner consistent with CLIA requirements. This test has not been cleared or approved by the U.S. Food and Drug Administration. Test Performed by: [facility] - [address] [address] 5 It is recognized that currently available [...] 5 Kidney failure <15 (or dialysis) 7 [id number] SEE RESULT BELOW Name: BRIGIDA OLIVAREZ : [address]: Rory Bowens MD Acct: [id number] Unit: [id number] AGE: 61 Location: [facility] Re04/01/17 SEX: F Status: DEP REF SPEC: [id number] LETICIA: 04/01/[address]: Rory Bowens MD REQ: [id number] RECD: 04/01/17 STATUS: SUHA SHARP DR: Davide Christianson III, MD _ ORDERED: LEVEL 4 COMMENTS: [id number] FINAL DIAGNOSIS Colon, 20 cm, biopsy: -- [...] performed at Main Lab DEPARTMENT OF PATHOLOGY, [address] [place] [address] Masoud Ramsey M.D. Director [facility] # [id number] 9 Because ethnic data is not always [...] 5 Kidney failure <15 (or dialysis) 10 Because ethnic data is not always [...] normal population are 25-80 Test Performed by: [facility] Dpt of Lab Med and Pathology [address] [place] [address] Electrotherapist: Adarsh Trinh III, M.D. 30 Anion gap measurement may be of limited value in the presence of any alkalosis, especially in a combined acid base disorder. . 31 A metabolite of Naproxen, O-desmethylnaproxen, has been shown to interfere with the Jendrassik-Tomas De Castro method for measuring total bilirubin. Samples from [...] Risk: LDL Greater than 189 MG/DL 36 CHOLESTEROL INTERPRETATION: Desirable: Less than 200 MG/DL Borderline-High Risk: 200-239 MG/DL High-Risk: 240 MG/DL and over 37 HDL INTERPRETATION: Undesirable: High Risk: Less than 40 MG/DL Desirable: Low Risk: Greater than 60 MG/DL 38 LDL INTERPRETATION: Low Risk Optimal Level: LDL Less than 100 MG/DL Near or Above Optimal: LDL 100-129 MG/DL Borderline High Risk: LDL 130-159 MG/DL High Risk: LDL 160-189 MG/DL Very High Risk: LDL Greater than 189 MG/DL 39 Anion gap measurement may be of limited value in the presence of any alkalosis, especially in a combined acid base disorder. . 40 Note change in reference range as of 03/07/08. The change was based on recommendations from the [place] [employer]. 41 Please note change in reference range effective 07 . 42 A metabolite of Naproxen, O-desmethylnaproxen, has been shown to interfere with the Jendrassik-Laura method for measuring total bilirubin. Samples from patients who have taken Naproxen have shown spurious elevation in total bilirubin levels. 43 Because ethnic data is not always readily [...] 15-29 5 Kidney failure <15 (or dialysis) 44 PATIENT MAY HAVE RESULTS PER DOCTOR'S AUTHORIZATION. Questions regarding this report should be directed to your doctor. 45 Anion gap measurement may be of limited value in the presence of any alkalosis, especially in a combined acid base disorder. . 46 Please note change in reference range effective 07 . 47 ---- RUN DATE: 04/03/07 [facility] NMI LIVE PAGE 1 RUN TIME: 1202 Specimen Inquiry RUN USER: INTERFACE [id number] BRIGIDA OLIVAREZ 51/F <REG REF 03/30> ([id number]) Gutierrez Harrison MD -- Specimen: [id number] SOUT Spec Date: 03/30/[address]: Gutierrez waite MD Spec Type: SURGICAL P Received: 03/31/07 Copies to: Davide Christianson III, MD SPECIMEN 1) COLON POLYP BIOPSY HEPATIC FLEXURE 2) COLON POLYP AT 30 CM. HISTORY CLINICAL INFORMATION: Patient for screening colonoscopy with positive fam chandrika history of colon polyps. Negative colonoscopy [...] 04/03/07 1202 -- -- DEPARTMENT OF PATHOLOGY, [address] [place] [address] [facility] Permit #[id number] Masoud Ramsey M.D. Director of Laboratories Tru Aranda II, M.D . Pathologist -- Procedures Date CPT Code Description Status 12/08/2017 Bone Mineral Density Test Completed 11/30/2017 Mammogram Completed 04/01/2017 Colonoscopy Completed 04/01/2017 14759 Moderate Sedation Services; Same Phys Each Additional Completed 15 Mins 04/01/2017 16282 Moderate Sedation Services; Same Phys Intl 15 Mins; PT Completed >=5 Years 04/01/2017 87928 Colonoscopy Flexible W/Biopsy Completed 02/22/2017 Colonoscopy Completed 12/01/2016 Mammogram Completed 01/08/2016 Bone Mineral Density Test Completed 12/22/2015 Mammogram Completed 12/24/2014 Mammogram Completed 01/03/2014 Bone Mineral Density Test Completed 12/05/2013 Mammogram Completed 02/09/2013 98532 EKG, Interpretation Only Completed 01/10/2013 Mammogram Completed 01/10/2012 Mammogram Completed 04/26/2011 Bone Mineral Density Test Completed 03/26/2011 Mammogram Completed 02/12/2010 75033 Screening Vision Test Completed 03/21/2009 Mammogram Completed 03/30/2007 Colonoscopy Completed Encounters Type Date Location Provider CPT E/M Dx Office Visit 01/20/2018 [facility] [place] [address] M41.9 9:00a Of Joi Patel MD M47.26 M51.36 M48.061 Office Visit 01/10/2018 11:00a [facility] Chris Charles, 92532 R20.2 Services Of Jio Moeller M5Michelle.5 M54.2 R94.09 Office Visit 12/05/2017 1:20p [facility] Internal Medicine Davide Christianson, 84197 Z00.00 - Dayanara Moeller I10 M85.9 M54.5 J30.9 Office Visit 11/21/2017 3:45p [facility] [place] 06416 M41.9 Of Joi Patel MD M47.26 M48.061 M54.2 Office Visit 11/14/2017 9:00a [facility] [place] 58096 M51.36 Of Joi Patel MD M41.9 M51.26 M47.26 M48.061 Office Visit 11/11/2017 10:50a [facility] Jaciel Fairchild, 07177 M51.36 Of Political Cartoonist M.DAmanda M41.9 Office Visit 04/20/2017 11:20a [facility] Jaciel Fairchild M.D. 28546 M41.9 Of Joi M51.36 M51.26 Office Visit 04/11/2017 2:20p [facility] Davide Christianson, 81991 M54.5 - Arrowmeir Moeller Office Visit 12/08/2016 9:20a [facility] Davide Christianson, 52312 Z00.00 - Arrowmeir Moeller I10 J30.9 M85.9 M54.5 Z12.11 Z23 Office Visit 01/05/2016 1:00p [facility] Davide Christianson 70871 Z00.00 - Patricia Moeller I10 J30.9 M85.9 M54.5 Office Visit 12/31/2014 1:00p [facility] Davide Christianson, 40676 V70.0 - Patricia Mello.DAmanda 401.1 477.9 733.90 724.2 V10.83 Office Visit 12/31/2013 1:00p [facility] Davide Christianson 57894 V70.0 - Patricia Mello.DAmanda 401.1 477.9 733.90 724.2 Office Visit 12/28/2012 1:00p [facility] Davide Christianson 61835 V70.0 - Patricia Mello.Autumn 401.1 477.9 709.9 Office Visit 12/28/2011 11:00a [facility] Davide Christianson 02058 V70.0 - Patricia Mello.DAmanda 401.1 733.90 719.46 Office Visit 02/24/2011 9:40a DO Not Use [employer] AT Davide Christianson, 32423 401.1 Alma Rosa Mello.Autumn 477.9 724.2 733.90 Office Visit 02/12/2010 9:40a DO Not Use [employer] AT Davide Christianson 53614 401.1 [facility] 477.9 724.2 733.90 Office Visit 02/03/2009 1:30p [facility], 72840 477.9 [facility].D. 724.2 111.2 401.1 Office Visit 12/16/2008 1:30a [facility], Gerber Tan, 50365 Hospitalists M.D. Office Visit 05/16/2008 2:00p [facility], 10567 724.2 [facility] M.D. Office Visit 01/31/2008 10:00a [facility], 99200 477.9 [facility].D. 401.1 Office Visit 08/28/2007 2:30p [facility], 59633 724.2 [facility].D. Office Visit 07/19/2007 11:00a [facility], 51614 724.2 [facility] M.D. Office Visit 07/07/2007 9:45a [facility], 93217 719.41 [facility] M.D. Office Visit 05/10/2007 10:45a [facility], 87931 719.41 [facility] M.D. Office Visit 03/14/2007 2:15p [facility], 61736 477.9 [facility].D. Office Visit 01/30/2007 2:15p [facility], 31296 401.1 [facility] M.D. Plan of Care Future Appointment(s):02/14/2018 3:20 pm - Davide Christianson M.D. at [facility]02/24/2018 11:00 am - Ricardo Patel MD at [facility]03/02/2018 10:30 am - Ricardo Patel MD at [facility]12/06/2018 9:20 am - Davide Christianson M.D. at [facility]
[2018-02-27] MEDS ORDERED: Midazolam* 1 MG/ML 5 ML VIAL (5 MG) ONE (09:15)
[2018-02-27] MEDS ORDERED: fentaNYL* 50 MCG/ML 2 ML VIAL (100 MCG VIAL) ONE ×3 (09:15→17:06)
[2018-02-27] MEDS ORDERED: Rocuronium* 10 MG/ML VIAL ONE ×2 (10:12→13:15)
[2018-02-27] MEDS ORDERED: Famotidine IV* 10 MG/ML 2 ML (20 mg) ONE (10:12)
[2018-02-27] MEDS ORDERED: Ondansetron INJ* 2 MG/ML VIAL ONE ×2 (10:12→14:21)
[2018-02-27] MEDS ORDERED: Propofol* 10 MG/ML 20 ML BTL IV PUSH ONE (10:12)
[2018-02-27] MEDS ORDERED: Dexamethasone IV* 4 MG/ML 1 ML (4 MG) ONE (10:12)
[2018-02-27] MEDS ORDERED: EPHEDrine (Pressors)* 50 MG/ML VIAL ONE (11:12)
[2018-02-27] MEDS ORDERED: Hetastarch 6% in NS* 500 ML IV ONE (11:14)
[2018-02-27] MEDS ORDERED: Ondansetron INJ* 2 MG/ML VIAL IV PRN ×2 (14:23→17:11)
[2018-02-27] MEDS ORDERED: oxyCODONE TAB* 5 MG TAB PO PRN (14:23)
[2018-02-27] MEDS ORDERED: Nalbuphine* 10 MG/ML 1 ML VIAL IV PRN (14:23)
[2018-02-27] MEDS ORDERED: PROCHLORPERAZINE INJ 5 MG/ML 2 ML VIAL IV PRN (14:23)
[2018-02-27] MEDS ORDERED: Naloxone* 0.4 MG/ML 1 ML VIAL IV PRN (14:23)
[2018-02-27] MEDS ORDERED: HYDROmorphone INJ* 0.5 MG/0.5 ML SYRINGE IV PRN (14:23)
[2018-02-27] MEDS ORDERED: DiMENhydriNATE IV* 50 MG/ML VIAL IV PUSH PRN (14:23)
[2018-02-27] MEDS: fentaNYL* 50 MCG/ML 2 ML VIAL (100 MCG VIAL) IV PRN ×2 (17:08→17:13)
--- NOTE | 2018-02-27 17:15 | RAD ---
INDICATION: Lumbar fusion COMPARISON: None FINDINGS: 13.6 seconds of fluoroscopy were provided for the neurosurgical department. Fluoroscopic spot imaging of the lumbar spine were obtained for operative control. CPT II Codes: G9500 (fluoro time doc)
--- NOTE | 2018-02-27 17:16 | RAD ---
INDICATION: Lumbar fusion COMPARISON: None FINDINGS: There is some 0.4 seconds of fluoroscopy were provided for the neurosurgical department. Fluoroscopic spot imaging of the MR spine were obtained for operative control. CPT II Codes: G9500 (fluoro time doc)
[2018-02-27] MEDS ORDERED: Morphine INJ* 2 MG/ML 1 ML SYRINGE (TWO MG - NEW SYRINGE VERSION) IV PRN (17:31)
[2018-02-27] MEDS: Montelukast Sodium TAB* 10 MG PO SCH (18:54)
[2018-02-27] MEDS: oxyCODONE TAB* 5 MG TAB PO PRN ×2 (18:55→22:56)
--- NOTE | 2018-02-27 23:33 | OP ---
OPERATIVE REPORT: DATE OF OPERATION: 02/27/18 - Inpatient, room [facility]. DATE OF : 55 SURGEON: Ricardo Patel MD POLICY SPECIALIST: DAVON Dubois The case was done with the assistance of a surgical PA because of the complexity of the case. ANESTHESIOLOGIST: Jaciel Rios MD ANESTHESIA: General. PRE-OP DIAGNOSIS: POST-OP DIAGNOSIS: OPERATIVE PROCEDURE: The patient underwent a left L2-3 and L3-4 minimally invasive TLIF with expandable PEEK interbody cages, autologous iliac crest bone graft through a separate incision, local bone graft and DBX with intraoperative navigation. ESTIMATED BLOOD LOSS: 50 cc. COMPLICATIONS: None. SUMMARY: The patient is a very pleasant 62-year-old female with complaints of back pain radiating to the left lower extremity. The patient had MRI findings consistent with severe degenerative disk disease at L2-3 and L3-4 with stenosis and asymmetric disk space collapse and rotational deformity with scoliosis. The patient failed conservative modalities and she was offered the option of surgical intervention in the form of left L2-3 and L3-4 MIS TLIF. After explaining all expectations, limitations, and possible complications of the procedure to the patient and her with complications included, but not limited to bleeding, infection, risk of injury to adjacent structures, coma, paralysis, , need for additional procedure, anesthesia risk, stroke, blindness, cancer, instability, hardware failure, adjacent level disease, pseudoarthrosis, spinal fluid leak, proximal junctional kyphosis, progression of the deformity. The patient and her were agreeable to proceed with surgery and informed consent was obtained. The patient understood that her condition may not improve and in fact may get worse after the surgery and she may need to have additional procedures in the future. She also understood that the operative plan may be modified according to intraoperative findings and conditions and that she may need to have additional procedures in the future. DESCRIPTION OF PROCEDURE: The patient was brought to the operating room, was placed under general anesthesia by the anesthesia team. She was carefully positioned prone on the Derrick table and all bony prominences were meticulously padded. Her skin was prepped and draped in a standard fashion. After appropriate surgical pause and patient identification, a small incision over the right iliac crest was performed. The Corex trocar was used to harvest the iliac crest bone graft for use for the arthrodesis part of the case. The navigation star was also secured through the same incision and intraoperative O- arm imaging was obtained. The patient's data was transferred to the navigation platform and the projection of the pedicle screws as well as the optimal placement of the tubular retractors were marked on the skin. The skin was infiltrated with local anesthetic and a left paramedian incision was performed with #10 surgical blade. This was advanced with Bovie cautery and under stereotactic navigation, the METRx tubular retractor system was positioned over a series of dilators over the L2-3 disk space on the left, reduction of the facet and the lamina. Microscope was brought into the field and after removing the last remnants of the paraspinal musculature, the bony structures of the left L2 lamina as well as the L2-3 facet was readily identified. High-speed drill was used to perform a partial laminectomy of L2 as well as almost complete facetectomy. Locally harvested bone graft was saved for the arthrodesis part of the procedure. The ligamentum flavum was then gently removed with use of Kerrison punches. The thecal sac was readily identified as well as the exiting L3 nerve root. After careful dissection, the disk space level was identified and a small annulotomy was performed with a #11 surgical blade. Of note, the disk space was almost completely collapsed and a high- speed drill was used to perform a small osteotomy in order to allow the advancement of the disk space preparation instruments. After a series of dilators were placed in the disk space, a Medtronic Elevate expandable PEEK cage 7 x 28 mm was placed after being filled with locally harvested iliac crest bone graft and DBX while the rest of the disk space was filled with the same graft prior to placement of the interbody cage. The same procedure was repeated for the L3-4 disk space and the dorsal fascia was closed in a watertight fashion. Prior to removal of the tubular retractors , meticulous hemostasis was performed, copious irrigation was performed, and after meticulous inspection, the wound was closed by layers. Then, another O- arm imaging was obtained confirming excellent placement of all interbody cages and excellent correction of her deformity. At that time, it was elected to limit the procedure into these 2 levels. The projection of the pedicle screws was then marked on the skin and a right paramedian incision was also performed with a #10 surgical blade after infiltrating the skin with local anesthetic. The pedicles of L2, L3 and L4 were cannulated with use of high torque drill with navigated drill guide and Bellytronic 6.5 x 45 mm screws were placed in each pedicle. Two rods were used to connect the screw heads and they were secured with screw head caps. Intraoperative O-arm imaging confirmed excellent placement of all hardware. The extension towers of the pedicle screws were then gently removed and after meticulous hemostasis, the dorsal fascia defects were approximated with 0 interrupted Vicryl sutures while the wound was closed by layers with 2-0 interrupted Vicryl sutures for the subcutaneous layers and Dermabond for covering the skin. At the end of the procedure, all counts were reported to be correct. The patient remained hemodynamically stable throughout the case. The patient was then turned supine, was extubated and was transferred to Recovery in excellent condition. The case was done with assistance of a surgical PA because of the complexity of the case. [id number]/[facility] #: [id number] MIGUEL
[2018-02-28] MEDS: Morphine INJ* 2 MG/ML 1 ML SYRINGE (TWO MG - NEW SYRINGE VERSION) IV PRN ×5 (00:58→20:01)
[2018-02-28] MEDS: oxyCODONE TAB* 5 MG TAB PO PRN ×4 (02:59→19:22)
[2018-02-28] MEDS: Triamterene/HCTZ 37.5-25 MG* CAP PO SCH (07:55)
[2018-02-28] MEDS: Fluticasone NASAL SPRAY 50MCG* 16 gm SPRAY BTL BOTH NARES SCH (08:01)
--- NOTE | 2018-02-28 09:36 | RAD ---
INDICATION: Postop lumbar fusion. COMPARISON: Comparison is made with a prior study from November 11, 2017. TECHNIQUE: AP and lateral films of the lumbar spine were obtained. FINDINGS: The patient is status post posterior spinal fusion at the L2-L4 levels with pedicle screws. The surgical hardware appears intact. There are also disc prostheses within the L2-L3 and L3-L4 discs. There is air in the posterior soft tissues consistent with the patient's recent surgery. The vertebra are normal alignment. No fracture is seen. IMPRESSION: STATUS POST POSTERIOR SPINAL FUSION L2-L4.
[2018-02-28] MEDS ORDERED: Cyclobenzaprine TAB* 10 MG PO PRN (12:14)
[2018-02-28] MEDS: Diazepam TAB(*) 5 MG PO PRN (17:49)
[2018-02-28] MEDS: Montelukast Sodium TAB* 10 MG PO SCH (17:49)
[2018-02-28] MEDS: Calcium/Vitamin D TAB 250/125* TAB PO SCH (21:44)
[2018-02-28] MEDS: Cholecalciferol TAB* 400 UNIT PO SCH (21:44)
[2018-02-28] MEDS ORDERED: Ketorolac INJ* 30 MG/ML 1 ML VIAL IV ONE (23:00)
[2018-03-01] MEDS: oxyCODONE TAB* 5 MG TAB PO PRN ×4 (00:27→22:41)
[2018-03-01] MEDS: Calcium/Vitamin D TAB 250/125* TAB PO SCH ×2 (08:50→20:17)
[2018-03-01] MEDS: Cetirizine* 10 MG TAB PO SCH (08:50)
[2018-03-01] MEDS: Cholecalciferol TAB* 400 UNIT PO SCH ×2 (08:51→20:17)
[2018-03-01] MEDS: Triamterene/HCTZ 37.5-25 MG* CAP PO SCH (08:51)
[2018-03-01] MEDS: Fluticasone NASAL SPRAY 50MCG* 16 gm SPRAY BTL BOTH NARES SCH (08:55)
[2018-03-01] MEDS: Diazepam TAB(*) 5 MG PO PRN ×2 (10:16→20:17)
[2018-03-01] MEDS ORDERED: oxyCODONE TAB* 5 MG TAB PO PRN ×2 (14:00→16:21)
--- NOTE | 2018-03-01 15:59 | PN ---
Progress Note - Progress Note Date of Service: 03/01/18 SOAP: Subjective: []Patient was seen earlier today and yesterday. No events ON. Pain better controlled today, but patient still complains of incisional back pain. Preop LE pain resolved. Ambulates.Tolerates po well Objective: []VSS, Afebrile. Wounds s,c,d AAOx3 EVAN, CN II-XII grossly intact. Motor 5/5 all extremities Sensory grossly intact to light touch. Assessment: []62 yof POD#2 MIS TLIF L2-3,L3-4 Plan: []Monitor VS, Neurochecks, DC fountain, YOSHI XR reveals good placement of hardware, good alignment of spine. Encourage ambulation PT Requested consultation by Dr Shah for pain control. Appreciate input. GROVER planning. Cheikh Patel MD
[2018-03-01] MEDS: Montelukast Sodium TAB* 10 MG PO SCH (17:19)
[2018-03-01] MEDS: Pregabalin CAP(*) 50 MG PO SCH ×2 (17:22→21:17)
--- NOTE | 2018-03-01 21:56 | CONSULT ---
Consult Consult: INPATIENT PAIN CONSULTATION Rubi Olivarez is a 62 year old female. She developed back pain in 2008, but it worsened in September,. She had an MRI in December,, showing a left disk protrusion at L2/3 impinging on the nerve root and at L3/4 there was DJD and facet hypertrophy combined with a disc protrusion with a far left lateral component possibly impinging on the nerve root. She went to the Pain clinic and had 3 LESIs with some relief. She initially wanted to treat the back conservatively. She had an abnormality on her cervical spine MRI, and saw Dr. Charles for that. She wintered in [place] but when she came back she saw Dr. Patel. She elected for surgical treatment. She was admitted to [facility] and had a left L2/3 and L3/4 TLIF on February 27. She was put on oxycodone post operatively and has had a lot of pain. I am asked to see her. She describes a lot of back pain and pain in both hips. No history of any substance abuse or chronic opioid use prior to surgery. Last BM was Tuesday PAST MEDICAL HISTORY: HTN, Scoliosis. ALLERGIES: PCN, tylenol Current Medications Calcium/Vitamin D (Oscal D Tab 250/125*) 2 tab PO BID [facility] Last Admin: 03/01/18 20:17 Dose: 2 tab Cetirizine HCl (Zyrtec*) 10 mg PO QAM [facility]; Protocol Last Admin: 03/01/18 08:50 Dose: 10 mg Cholecalciferol (Vitamin D Tab*) 400 unit PO BID [facility] Last Admin: 03/01/18 20:17 Dose: 400 unit Diazepam (Valium Tab(*)) 5 mg PO Q8H PRN PRN Reason: muscle spasms Last Admin: 03/01/18 20:17 Dose: 5 mg Fluticasone Propionate (Flonase Nasal [place] 50mcg*) 1 spray BOTH NARES QAM [facility] Last Admin: 03/01/18 08:55 Dose: 1 spray Magnesium Hydroxide (Milk Of Magnesia Liq*) 30 ml PO DAILY PRN PRN Reason: CONSTIPATION Montelukast Sodium (Singulair Tab*) 10 mg PO QPM [facility] Last Admin: 03/01/18 17:19 Dose: 10 mg Morphine Sulfate (Morphine Inj ((Syringe))*) 2 mg IV Q4H PRN PRN Reason: PAIN Last Admin: 02/28/18 20:01 Dose: 2 mg Ondansetron HCl (Zofran Inj*) 4 mg IV Q6H PRN PRN Reason: NAUSEA/VOMITING Oxycodone HCl (Roxycodone Tab*) 10 mg PO Q4H PRN PRN Reason: PAIN - SEVERE Oxycodone HCl (Roxycodone Tab*) 5 mg PO Q4H PRN PRN Reason: PAIN - MODERATE TO SEVERE Pregabalin (Lyrica Cap(*)) 50 mg PO TID [facility] Last Admin: 03/01/18 21:17 Dose: 50 mg Triamterene/HCTZ (Dyazide Cap*) 1 cap PO QAM [facility] Last Admin: 03/01/18 08:51 Dose: Not Given SOCIAL HISTORY: non smoker, occasional drinker. Lives with her Vital Signs Temp Pulse Resp BP Pulse Ox 98.2 F 87 18 107/67 99 03/01/18 19:41 03/01/18 21:24 03/01/18 21:24 03/01/18 21:24 03/01/18 21:24 EXAM: LUNGS: clear HEART: reg rhythm ABDOMEN: Soft BACK: Dressing C/D/I NEUROLOGIC: alert and oriented. Motor exam non focal ASSESSMENT: 1. Left TLIF, L2/3 and L3/4 PLAN: Will increase her oxycodone to 5-10 mg every 4 hours as needed. She had Valium added for spasms. She may benefit from Lyrica for her pain. I will add Colace and Senokot for her bowels
[2018-03-01] MEDS ORDERED: Docusate CAP* 100 MG PO ONE (22:47)
[2018-03-01] MEDS: Magnesium Hydroxide LIQ* 30 ML UDC PO PRN (22:53)
[2018-03-02] MEDS: oxyCODONE TAB* 5 MG TAB PO PRN ×5 (03:13→20:55)
[2018-03-02] MEDS: Diazepam TAB(*) 5 MG PO PRN (04:41)
[2018-03-02] MEDS: Magnesium Hydroxide LIQ* 30 ML UDC PO PRN (08:19)
[2018-03-02] MEDS: Calcium/Vitamin D TAB 250/125* TAB PO SCH ×2 (08:20→20:51)
[2018-03-02] MEDS: Cholecalciferol TAB* 400 UNIT PO SCH ×2 (08:20→20:52)
[2018-03-02] MEDS: Docusate CAP* 100 MG PO SCH ×2 (08:20→20:51)
[2018-03-02] MEDS: Fluticasone NASAL SPRAY 50MCG* 16 gm SPRAY BTL BOTH NARES SCH (08:20)
[2018-03-02] MEDS: Cetirizine* 10 MG TAB PO SCH (08:20)
[2018-03-02] MEDS: Pregabalin CAP(*) 50 MG PO SCH ×3 (08:20→20:52)
[2018-03-02] MEDS: Triamterene/HCTZ 37.5-25 MG* CAP PO SCH (09:49)
[2018-03-02] MEDS ORDERED: Bisacodyl SUPP* 10 MG SUPP PR ONE (11:25)
--- NOTE | 2018-03-02 12:48 | PN ---
Progress Note - Progress Note Date of Service: 03/02/18 SOAP: Subjective: []No events ON. Pain better controlled today. Preop LE pain resolved. Ambulates. Tolerates po well Objective: []VSS, Afebrile. Wounds s,c,d AAOx3 EVAN, CN II-XII grossly intact. Motor 5/5 all extremities Sensory grossly intact to light touch. Assessment: []62 yof POD#3 MIS TLIF L2-3,L3-4 Plan: []Monitor VS, Neurochecks, Encourage ambulation PT Greatly appreciate Dr Shah's input for pain control. DC planning. Cheikh Patel MD
[2018-03-02] MEDS: Montelukast Sodium TAB* 10 MG PO SCH (17:37)
[2018-03-02] MEDS ORDERED: Senna TAB PO SCH (21:00)
[2018-03-03] MEDS: Morphine INJ* 2 MG/ML 1 ML SYRINGE (TWO MG - NEW SYRINGE VERSION) IV PRN (00:05)
[2018-03-03] MEDS: oxyCODONE TAB* 5 MG TAB PO PRN ×2 (08:13→12:13)
[2018-03-03] MEDS: Triamterene/HCTZ 37.5-25 MG* CAP PO SCH (08:14)
[2018-03-03] MEDS: Calcium/Vitamin D TAB 250/125* TAB PO SCH (08:14)
[2018-03-03] MEDS: Cetirizine* 10 MG TAB PO SCH (08:14)
[2018-03-03] MEDS: Cholecalciferol TAB* 400 UNIT PO SCH (08:14)
[2018-03-03] MEDS: Pregabalin CAP(*) 50 MG PO SCH ×2 (08:15→13:41)
[2018-03-03] MEDS: Docusate CAP* 100 MG PO SCH (08:15)
[2018-03-03] MEDS: Fluticasone NASAL SPRAY 50MCG* 16 gm SPRAY BTL BOTH NARES SCH (08:15)
--- NOTE | 2018-03-03 13:40 | PN ---
Progress Note - Progress Note Date of Service: 03/03/18 SOAP: Subjective: []No events ON. Pain better controlled today. Preop LE pain resolved. Ambulates. Tolerates po well. Voids. Wants to go home. Objective: []VSS, Afebrile. Wounds s,c,d AAOx3 EVAN, CN II-XII grossly intact. Motor 5/5 all extremities Sensory grossly intact to light touch. Assessment: []62 yof POD#3 MIS TLIF L2-3,L3-4 Plan: [] Monitor VS, Neurochecks, Encourage ambulation PT Greatly appreciate Dr Shah's input for pain control. DC today. Full instructions were given. Cheikh Patel MD
[2018-03-03 14:27] VITALS: BP 114/62
== END 2018-03-03 14:40 | disposition home or self-care (01) | DRG 304 ==
LOC: AA 08:05 → SSU 18:17
PROVIDERS: ADMIT Neurological Surgery; ATTEND Neurological Surgery
PROC: 4A11X4G Monitoring of Peripheral Nervous Electrical Activity, Intraoperative, External Approach (ICD-10-PCS; 2018-02-27)
PROC: 0QB20ZZ Excision of Right Pelvic Bone, Open Approach (ICD-10-PCS; 2018-02-27)
PROC: 0SG10AJ Fusion of 2 or more Lumbar Vertebral Joints with Interbody Fusion Device, Posterior Approach, Anterior Column, Open Approach (ICD-10-PCS; principal; 2018-02-27 10:00)
DX: M47.27 Other spondylosis with radiculopathy, lumbosacral region (principal); M51.36 Other intervertebral disc degeneration, lumbar region; M50.321 Other cervical disc degeneration at C4-C5 level; M41.86 Other forms of scoliosis, lumbar region; M85.80 Other specified disorders of bone density and structure, unspecified site; M48.061 Spinal stenosis, lumbar region without neurogenic claudication; I10 Essential (primary) hypertension; G89.29 Other chronic pain; M93.90 Osteochondropathy, unspecified of unspecified site; J30.9 Allergic rhinitis, unspecified; Z88.0 Allergy status to penicillin; Z88.8 Allergy status to other drugs, medicaments and biological substances; Q04.9 Congenital malformation of brain, unspecified; Z87.891 Personal history of nicotine dependence; Z90.710 Acquired absence of both cervix and uterus
CPT/HCPCS: 72100; 76001; A9270-GY; C1713; C9359; J1100; J1885; J2250; J2270; J2405; J2704; J3010; J3370